=== PATIENT | male | born 1970 | race African-American/Black ===

== ENCOUNTER 2022-06-07 15:51 | Inpatient (IN) ==
--- NOTE | 2022-06-07 16:55 | XRay Report ---
XR chest 1V portable HISTORY: Shortness of breath. COMPARISON: None. FINDINGS: There is a large right pneumothorax with near complete collapse of the right lung. There is mild left mediastinal shift suggesting a tension right pneumothorax. The left lung is clear. No pleu ral effusions. No acute fractures identified. IMPRESSION: Large right pneumothorax with mild left mediastinal shift suggesting a tension pneumothorax. This was discussed with Dr. Cano at 4:50 PM on 06/07/2022. ACT 112: Negative or not required by law. Electronically signed by: Donald Oneill M.D. 06/07/2022 4:53 PM
[2022-06-07] MEDS ORDERED: fentaNYL citrate 100 MCG/2 ML VIAL IV ONE (16:57)
[2022-06-07] MEDS ORDERED: ONDANSETRON INJ 2 MG/ML 2 ML VIAL IV STA (16:57)
[2022-06-07] MEDS ORDERED: SODIUM CHLORIDE 0.9% 1000ML 1,000 ML IV ONE (16:58)
[2022-06-07 17:20] LABS: Basophils # (auto) 0.02 K/uL (0-0.2); Basophils % (auto) 0.2 %; Eosinophils # (auto) 0.22 K/uL (0-0.50); Eosinophils % (auto) 2.4 %; Hematocrit (blood only) 48.6 % (40.1-51.0); Hemoglobin 16.9 g/dl (14.0-18.0); Immature Granulocytes # (auto) 0.02 K/uL (0.00-0.02); Immature Granulocytes % (auto) 0.2 %; Lymphocytes # (auto) 2.68 K/uL (1.2-3.4); Lymphocytes % (auto) 29.4 %; Mean Corpuscular Hemoglobin 31.9 pg (25.0-34.0); Mean Corpuscular Hgb Conc 34.8 g/dL (32.0-36.0); Mean Corpuscular Volume 91.7 fL (80.0-100.0); Mean Platelet Volume 11.1 fL (9.4-12.4); Monocytes # (auto) 0.57 K/uL (0.24-0.82); Monocytes % (auto) 6.3 %; Neutrophils % (auto) 61.5 %; Platelet Count 240 K/uL (130-400); RDW Coefficient of Variation 12.4 % (11.5-14.5); RDW Standard Deviation 41.3 fL (36.4-46.3); White Blood Count 9.11 K/ul (4.8-10.8)
[2022-06-07 17:34] LABS: Partial Thromboplastin Ratio 0.9; Partial Thromboplastin Time 25.1 Seconds (21.0-31.0); Prothrombin Time 10.5 Seconds (9.0-12.0)
[2022-06-07 17:41] LABS: Albumin Globulin Ratio 1.1 (0.9-2); Albumin Level 4.8 gm/dl (3.4-5.0); BUN Creatinine Ratio 11.6 (10-20); Bilirubin,Total 0.4 mg/dl (0.2-1.0); Calcium 10.5 mg/dl (8.5-10.1); Creatinine Clr Calc Pharmacy 90.5 ml/min; Est GFR (African American) 74.4 ml/min; Est GFR (Non-African American) 64.2 ml/min; Globulin 4.3 gm/dl (2.5-4.0); Magnesium 2.1 mg/dl (1.7-2.4); Potassium 4.5 mmol/L (3.5-5.1); Total Protein 9.1 gm/dl (6.0-8.3)
[2022-06-07] MEDS ORDERED: XYLOCAINE 1%/SOD BICARB 20 ML VIAL INFIL ONE (17:45)
[2022-06-07 17:50] LABS: Troponin I High Sensitivity 13.6 pg/ml (0-20)
--- NOTE | 2022-06-07 18:09 | XRay Report ---
XR chest 1V portable HISTORY: Right-sided pneumothorax status post chest tube. COMPARISON: Chest 06/07/2022. FINDINGS: A right-sided chest tube terminates in the right upper lung zone. Significant decrease in s ize in the now small to moderate right pleural effusion. Right medial lung base densities favor atele ctasis of the right lower lobe. The left lung is clear. No significant mediastinal shift. The heart i s normal in size. IMPRESSION: Decrease in size in the now small to moderate right pleural effusion status post right chest tube kristen cement. ACT 112: Negative or not required by law. Electronically signed by: Donald Oneill M.D. 06/07/2022 6:07 PM
[2022-06-07] MEDS ORDERED: fentaNYL citrate 100 MCG/2 ML VIAL IV STA (18:16)
[2022-06-07] MEDS ORDERED: ONDANSETRON INJ 2 MG/ML 2 ML VIAL IV PRN (18:55)
[2022-06-07] MEDS ORDERED: MAGNESIUM HYDROXIDE SUSP 30 ML UDC PO PRN (18:55)
[2022-06-07] MEDS ORDERED: ACETAMINOPHEN 325 MG TAB PO PRN (18:55)
[2022-06-07] MEDS ORDERED: POLYETHYLENE (MIRALAX) 17 GM PACK PO PRN (18:55)
[2022-06-07] MEDS ORDERED: ALUMINUM/MAGNESIUM SUSP 30 ML UDC PO PRN (18:55)
--- NOTE | 2022-06-07 19:02 | History & Physical Report ---
Date of Service June 07, 2022 Assessment & Plan (1) Tension pneumothorax: (2) Shortness of breath: Plan: Patient reports working out at the gym throwing a weighted medicine ball and started to have right-sided chest pain CXR: Large right pneumothorax with mild left mediastinal shift suggesting a tension pneumothorax Right-sided chest tube placed to - 20 cm dry suction Patient reports right sided insertion pain; Toradol 10 mg every 6 scheduled with Percocet every 6 as needed for breakthrough Patient reports being a smoker, but quit 3 years ago. Reportedly vapes at times. Recent cough; will rule out infection as organic cause Troponin 13.6 will trend x1. 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 Additionally, I was able to review the patients past medication reconciliation and history with direct visualization in the patients chart. Included in the time above, a portion of that time was spent assessing the pat ient while discussing and collaborating with specialists, if necessary, and making medical decisions regarding orders to be placed. All of the aforementioned completed while collaborating with Dr. Gonsalez for a full treatment plan. Please see his addendum for further details. History of Present Illness Chief Complaint: shortness of breath Primary Care Provider: SUSANA Day Mr. Guerrero is a 51-year-old incarcerated -[place] male that presented to the [facility] today after experiencing worsening shortness of breath. He reports that he was at the [employer] working out and tos sing a weighted medicine ball when he started to note pain in his right chest wall that occurred yesterday. Patient reports shortness of breath at rest and exertion starting today even when making his bed. Chest x-ray revealed large right pneumothorax with mild left mediastinal shift suggesting a tension pneumothorax. Dry suction -20 cm chest tube was placed in the right chest wall in the ED with relief of his shortness of breath. Additional past medical history includes HIV positive (on Biktarvy) for the last 9 to 10 years, depression and pericardial effusion status post Pericardiocentes is and pericardial drain thereafter. 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 Patient reports being a smoker and quitting 3 years ago; reports vaping occasionally. Upon examination, patient is AAO x4 and able to have full conversation without dyspnea. Patient reports right-sided insertional pain. Patient denies headache, dizziness, visual changes, other chest pain, palpitations, abdominal pain, nausea, vomiting, diarrhea, recent falls or trauma. Patient reportedly denies any trauma or chest blows from other inmates. Initial troponin 13.6 will trend x1 but do not suspect ACS contribution to symptoms. Patient will be admitted for further evaluation, consultation, and management. Please see A/P for further details. Allergies Allergy/AdvReac Type Severity Reaction Status Date / Time sodium chloride AdvReac Unknown CONTRAINDIC Verified 06/07/22 18:29 [From [place] Nasal] ATED Home Medications Medication Instructions Recorded Confirmed Type bictegravir 30 mg-emtricitabine 1 tab PO DAILY 06/07/22 06/07/22 History 120 mg-tenofovir alafenam 15 mg tablet (Biktarvy) doxepin 10 mg capsule 10 mg PO HS 06/07/22 06/07/22 History multivitamin with min 1 tab PO DAILY 06/07/22 06/07/22 History no.36-iron,carbonyl-FA 16 mg iron-0.38 mg tablet (Geritol Complete) Past Med/Surg History Medical History (Updated 06/07/22 @ 20:36 by RUBIN Guzman) Depression HIV (human immunodeficiency virus infection) Pericardial effusion Pericardial effusion Shortness of breath Family History (Updated 06/07/22 @ 20:35 by RUBIN Guzman) Other Depression Dyslipidemia Social History (Updated 06/07/22 @ 20:35 by RUBIN Guzman) Smoking Status: Former smoker Tobacco Type: Cigarettes Hx Substance Use: No Feels Safe at Home: Yes Review of Systems Review of Systems: Neuro: (-) Falls, trauma, slurred speech HEENT: (-) RODRIGUEZ, dizziness, dysphagia, visual or auditory changes CV: (-) CP, palpitations, swelling Resp: (+) SOB, + Right wall chest tube insertion pain GI: (-) appetite changes, N/V/D, bowel changes : (-) urinary changes Skin: (-) rashes Psych: (-) anxiety, depression Physical Exam Physical Exam: Neuro: AAOx4, PERRLA, no aphagia, memory changes, CNII-XII grossly intact HEENT: head normocephalic, moist mucus membranes CV: S1/S2, (-) M/G/R, (-) edema, cap refill < 3 seconds Resp: Lungs CTA in left painting. no air movement on right sideOn 2LNC GI: Abdomen S/NT/ND, Ax4 bowel sounds, (-) CVA tenderness Musculoskeletal: 5/5 B/L UE strength, 5/5 B/L LE strength. No gait disturbance Skin: (-) rashes , (-) erythema. Psych: euthymic mood Results & Data Results & Data ([facility]) Vital Signs (Past 12 Hours) Vital Signs Temp Pulse Pulse Resp BP BP Pulse Ox 06/07/22 18:30 59 L 16 131/82 97 06/07/22 18:01 67 16 151/62 H 97 06/07/22 17:31 93 H 18 148/95 H 94 06/07/22 17:13 76 18 160/66 H 94 06/07/22 18:10 98 06/07/22 15:44 78 20 148/85 H 95 06/07/22 15:44 95 06/07/22 15:44 36.6 C 76 20 145/85 H 95 06/07/22 15:44 O2 Del Method O2 Flow Rate 06/07/22 18:30 Nasal Cannula 2 06/07/22 18:01 Nasal Cannula 4 06/07/22 17:31 Nasal Cannula 4 06/07/22 17:13 Nasal Cannula 4 06/07/22 18:10 Nasal Cannula 4 06/07/22 15:44 Room Air 06/07/22 15:44 Room Air 06/07/22 15:44 Room Air 06/07/22 15:44 Room Air Laboratory Results Short CBC 06/07/22 Range/Units 16:41 WBC 9.11 (4.8-10.8) K/ul Hgb 16.9 (14.0-18.0) g/dl Hct 48.6 (40.1-51.0) % Plt Count 240 (130-400) K/uL BMP 06/07/22 16:41 Sodium 138 Potassium 4.5 Chloride 103 Carbon Dioxide 28 BUN 15 Creatinine 1.29 Glucose 78 Calcium 10.5 H Liver Function 06/07/22 Range/Units 16:41 Total Bilirubin 0.4 (0.2-1.0) mg/dl AST 32 (13-39) U/L ALT 41 (7-52) U/L Alkaline Phosphatase 110 H (34-104) U/L Albumin 4.8 (3.4-5.0) gm/dl Diagnostic Findings Chest X-Ray 06/07/22 16:39 XR chest 1V portable HISTORY: Shortness of breath. COMPARISON: None. FINDINGS: There is a large right pneumothorax with near complete collapse of the right lung. There is mild left mediastinal shift suggesting a tension right pneumothorax. The left lung is clear. No pleural effusions. No acute fractures identified. IMPRESSION: Large right pneumothorax with mild left mediastinal shift suggesting a tension pneumothorax. This was discussed with Dr. Cano at 4:50 PM on 06/07/2022. ACT 112: Negative or not required by law. Electronically signed by: Donald Oneill M.D. 06/07/2022 4:53 PM Chest X-Ray 06/07/22 17:55 XR chest 1V portable HISTORY: Right-sided pneumothorax status post chest tube. COMPARISON: Chest 06/07/2022. FINDINGS: A right-sided chest tube terminates in the right upper lung zone. Significant decrease in size in the now small to moderate right pleural effusion. Right medial lung base densities favor atelectasis of the right lower lobe. The left lung is clear. No significant mediastinal shift. The heart is normal in size. IMPRESSION: Decrease in size in the now small to moderate right pleural effusion status post right chest tube placement. ACT 112: Negative or not required by law. Electronically signed by: Donald Oneill M.D. 06/07/2022 6:07 PM Code Status & VTE Plan Code Status Full code in the event of cardiac or respiratory arrest VTE Prophylaxis Plan VTE Prophylaxis will be ordered: Yes Supervising Physician Co-Signing Physician Notes 51-year-old male with PMH of COPD, tobacco abuse [he smoked for more than 25 years, quit 3 years ago, used to roll his own tobacco], current use of vaping, quit alcohol, uses weed, HIV on Biktarvy presented to the ED 06/07 with right- sided chest pain and shortness of breath. Per patient, he was working out/doing pushup, towards the end of the workout he started feeling some right-sided chest pain associated with some difficulty catching breath which progressively worsened through the day and was found to have right pneumothorax upon presentation in the ED. Patient declines headache or dizziness or fever, reports having dry cough last few days, denies belly pain or acute changes in his bowel or bladder habit. Medications reviewed with the patient Full code Plan of care discussed with the patient Upon examination: GENERAL: Alert and oriented x3. NAD, on 2 L nasal cannula HEENT: No pallor, no icterus. Pupils equal, round and reactive to light. Oral mucosa moist. NECK: No JVD, no neck masses. HEART: S1 and S2 heard. Regular rate and rhythm. No murmur, no gallop. RESPIRATORY SYSTEM: Normal AP diameter. No accessory muscle use. Right chest with chest tube and decreased breath sound, left chest with clear to auscultation. ABDOMEN: Soft, bowel sounds present, nontender, no distention. CENTRAL NERVOUS SYSTEM: No facial droop. Speech is clear. Obeys simple commands. Moves extremities. EXTREMITIES: No edema, no erythema seen. Assessment and plan: Tension pneumothorax x right Patient presented with right-sided chest pain associated with difficulty catching breath Patient found to have right large pneumothorax, status post chest tube insertion 06/07 in the ED Admitting troponin WNL. Pulmonology consult. Patient appears not in distress, pain management. Get full viral panel. HIV AIDS: On Biktarvy as outpatient, will continue. DVT prophylaxis: SCDs only for now Full code
[2022-06-07] MEDS ORDERED: KETOROLAC TROMETHAMINE 15 MG/ML VIAL IV STA (20:51)
--- NOTE | 2022-06-08 00:32 | Emergency Department Note ---
Impression & Plan Tension pneumothorax ED Provider Note NAME: SUSANNE [id number] CHELO AGE: 51 SEX: M ARRIVES VIA: Ambulance INFORMANT: Patient ED PROVIDER(S): Lolis Cano MD CHIEF COMPLAINT: SOB PLAN: Disposition: Admit Condition: Fair MEDICAL DECISION MAKING: This pt was evaluated and appeared to be in no distress. IV access was obtained and lab work was drawn. CXR was performed prior to my evaluation and I was notified by radiology, Dr. Oneill, that the pt had a RIGHT pneumothorax with slight mediastinal shift. Pt was informed of the findings and I did reverify no trauma was involved. Pt was informed of the process with chest tube and due to the size of the pneumothorax, it was felt to be necessary. Pt tolerated the procedure well after 100 mcg IV fentanyl was administered x 2. He did receive IV NSS bolus for hydration. CXR was performed to confirm placement and the lung was noted to be expanding. Case was d/w the hospitalist service for further management. Pt was made aware of the plan and agreed. Triage Nursing notes reviewed Additional history obtained from halfway guards External medical records reviewed Vital Signs: reviewed and remarkable for no significant abnormalities Differential diagnosis: Reactive airway disease, pneumonia, pneumothorax, COPD, CHF, infections, cardiac ischemia, pulmonary embolism, musculoskeletal, gastrointestinal, as well as other pathologies. ER treatment provided: IV access, IVF, pain control, CXR, chest tube Diagnostics interpreted by me: ECG: to my interpretation reveals a sinus rhythm with sinus arrhythmia at 68 with previous anterior infarct. QTc 406, no PVC, no PAC. Cardiac Monitoring: to my interpretation reveals a NSR at 78 bpm Imaging studies: CXR to my interpretation reveals a large R pneumothorax w minimal mediastinal shift. Consultation(s): [facility] hospitalist HPI: 51/M arrives for evaluation of increasing SOB today. Pt states he noticed a bit of a URI/cough in the last 2 days. Today the pt was working out and noticed worsening SOB, but no CP. He did then start coughing. When he coughs or deep breaths he does notice some discomfort. Pt was seen by the infirmary at the halfway and given tylenol without relief. He was then transferred here for further management. He denies trauma, no h/o chest surgery. Pt denies fevers, vomiting, diarrhea. ROS: See above HPI for pertinent positives & negatives. A total of 10 systems reviewed and were otherwise negative. PAST MEDICAL HISTORY:HIV PAST SURGICAL HISTORY:Unknown, pt believes previous surgery on R side ?lung vs cardiac fluid SOCIAL HISTORY:[facility] HOME MEDICATIONS:Biktarvy, doxypin, MVI ALLERGIES:NKDA VITALS:AVSS PHYSICAL EXAMINATION: Vital signs reviewed. General: Well-appearing 51 yo male, in no significant distress. HEENT: No scleral icterus, PERRLA, neck supple. MMM Cardiovascular: Regular rate and rhythm, no extra sounds. Pulmonary: diminished R BS, clear L. shallow respirations on RA. Abdomen: Soft, nontender, nondistended, positive bowel sounds. Musculoskeletal: Atraumatic, no peripheral edema. Neurologic: Patient awake alert and oriented x 3 Skin: Warm, dry, no rash ED COURSE: This patient was evaluated and appeared to be in no significant distress. External medical records from the halfway were reviewed. Patient's chest x-ray was evaluated and a right pneumothorax with slight mediastinal shift was appreciated. Patient was not unstable therefore chest tube set up was performed after the patient was informed of the pending procedure. He was consented. He was given IV fentanyl and Zofran. The patient was hydrated with normal saline solution. Please see my procedure note below. He did tolerate the procedure well and there were no complications. A small chest tube was placed due to the spontaneous nature of the pneumothorax. Due to the size of the pneumothorax however I did not feel that a pigtail catheter was appropriate. Case was discussed with the hospitalist service will evaluate the patient for admission and further management Procedures: Tube Thoracostomy Indication: R Pneumothorax Written consent was obtained after the risks and benefits were explained, including but not limited to cardiac/liver/lung injury, bleeding, scarring, infection, pain, and bone/joint/nerve damage. At this time, the risks of the procedure are less than the risks of NOT performing the procedure. A time out was taken and the correct patient and site identified. The patient was prepped and draped in the standard surgical fashion. 1% lidocaine without epinephrine was infused over the R fifth intercostal space into the subcutaneous tissue. A 2 cm incision was made transversely in the mid axillary line over the fifth intercostal rib. Blunt dissection was done with a Erin clamp to the area of the intercostal muscles; 1% lidocaine again was used for anesthesia in intercostal muscle and subpleural space. Blunt dissection was then done with the Erin clamps into the pleural cavity over the rib. Air was noted upon entering the pleural cavity. The pleural cavity was digitally inspected to confirm that the pleural cavity had been entered. A 20 Lao thoracostomy tube was inserted in the superior/posterior portion of the pleural space. 1-0 silk suture was used to approximate the skin above the thoracostomy tube and then used to secure the thoracostomy tube. An occlusive dressing was then placed and the thoracostomy tube was hooked to the Pleur-evac suction. The patient tolerated the procedure well without complications. A postoperative x-ray was then performed which showed the thoracostomy tube in the correct position. Lolis Cano MD I have personally spent 30 minutes of critical care time in the direct management of this patient. This was a life/limb threatening event. This 30 minutes is in excess of all separately billable procedures. 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 Required: No Beliefs That Will Affect Care: None Current Living Situation: Other Current Living Situation Comment: halfway Other Information That Helps Us Care for You: No Feels Safe at Home: Yes Assistive Devices: None Allergies Allergies Allergy/AdvReac Type Severity Reaction Status Date / Time No Known Drug Allergies Allergy Verified 06/10/22 10:17 Home Meds Home Medications Medication Instructions Recorded Confirmed bictegravir 30 mg-emtricitabine 1 tab PO DAILY 06/07/22 06/07/22 120 mg-tenofovir alafenam 15 mg tablet (Biktarvy) doxepin 10 mg capsule 10 mg PO HS 06/07/22 06/07/22 multivitamin with min 1 tab PO DAILY 06/07/22 06/07/22 no.36-iron,carbonyl-FA 16 mg iron-0.38 mg tablet (Geritol Complete) Results & Data (ED) Vital Signs Vital Signs - 24 hr 06/07/22 15:44 06/07/22 15:44 06/07/22 15:44 Temperature 36.6 C Temperature Source Oral Pulse Rate 76 Pulse Rate [Apical] Pulse Rhythm Regular Pulse Rhythm [Apical] Pulse Strength Normal Pulse Strength [Apical] Respiratory Rate 20 Respiratory Effort / Characteristics Non-Labored Non-Labored Respiratory Depth Normal Normal Respiratory Pattern Regular Regular Blood Pressure 145/85 H Blood Pressure [Right Arm] Blood Pressure Mean 105 Blood Pressure Mean [Right Arm] Blood Pressure Position Lying Pulse Oximetry 95 95 Oxygen Delivery Method Room Air Room Air Room Air Oxygen Flow Rate Sepsis Recent Fever Within 48 Hours No Sepsis New/Unexplained Change in Mental Status N/A Sepsis Action Taken by Nursing No Action Required Oxygen Flow Rate - Titration Pulse Oximetry Post Tiitration 06/07/22 15:44 06/07/22 18:10 06/07/22 17:13 Temperature Temperature Source Pulse Rate 76 Pulse Rate [Apical] 78 Pulse Rhythm Pulse Rhythm [Apical] Regular Pulse Strength Pulse Strength [Apical] Normal Respiratory Rate 20 18 Respiratory Effort / Characteristics Non-Labored Respiratory Depth Normal Respiratory Pattern Regular Blood Pressure 160/66 H Blood Pressure [Right Arm] 148/85 H Blood Pressure Mean 97 Blood Pressure Mean [Right Arm] 106 Blood Pressure Position Pulse Oximetry 95 98 94 Oxygen Delivery Method Room Air Nasal Cannula Nasal Cannula Oxygen Flow Rate 4 4 Sepsis Recent Fever Within 48 Hours Sepsis New/Unexplained Change in Mental Status Sepsis Action Taken by Nursing Oxygen Flow Rate - Titration 2 Pulse Oximetry Post Tiitration 97 06/07/22 17:31 06/07/22 18:01 06/07/22 18:30 Temperature Temperature Source Pulse Rate 93 H 67 59 L Pulse Rate [Apical] Pulse Rhythm Pulse Rhythm [Apical] Pulse Strength Pulse Strength [Apical] Respiratory Rate 18 16 16 Respiratory Effort / Characteristics Respiratory Depth Respiratory Pattern Blood Pressure 148/95 H 151/62 H 131/82 Blood Pressure [Right Arm] Blood Pressure Mean 112 91 98 Blood Pressure Mean [Right Arm] Blood Pressure Position Pulse Oximetry 94 97 97 Oxygen Delivery Method Nasal Cannula Nasal Cannula Nasal Cannula Oxygen Flow Rate 4 4 2 Sepsis Recent Fever Within 48 Hours Sepsis New/Unexplained Change in Mental Status Sepsis Action Taken by Nursing Oxygen Flow Rate - Titration Pulse Oximetry Post Tiitration Home Medications Current Medication List: was personally reviewed by me Laboratory Data Attestation: I reviewed the patient's lab results. 06/07/22 16:41 06/07/22 16:41 Lab Results 06/07/22 06/07/22 06/07/22 Range/Units 16:41 16:41 16:41 WBC 9.11 (4.8-10.8) K/ul RBC 5.30 (4.63-6.08) M/uL Hgb 16.9 (14.0-18.0) g/dl Hct 48.6 (40.1-51.0) % MCV 91.7 (80.0-100.0) fL MCH 31.9 (25.0-34.0) pg MCHC 34.8 (32.0-36.0) g/dL RDW Std Deviation 41.3 (36.4-46.3) fL RDW Coeff of Lindsey 12.4 (11.5-14.5) % Plt Count 240 (130-400) K/uL MPV 11.1 (9.4-12.4) fL Immature Gran % (Auto) 0.2 % Neut % (Auto) 61.5 % Lymph % (Auto) 29.4 % Door % (Auto) 6.3 % Eos % (Auto) 2.4 % Baso % (Auto) 0.2 % Neut # (Auto) 5.60 (1.4-6.5) K/uL Lymph # (Auto) 2.68 (1.2-3.4) K/uL Door # (Auto) 0.57 (0.24-0.82) K/uL Eos # (Auto) 0.22 (0-0.50) K/uL Baso # (Auto) 0.02 (0-0.2) K/uL Immature Gran # (Auto) 0.02 (0.00-0.02) K/uL PT 10.5 (9.0-12.0) Seconds INR 1.0 (0.9-1.1) APTT 25.1 (21.0-31.0) Seconds PTT Ratio 0.9 Sodium 138 (136-145) mmol/L Potassium 4.5 (3.5-5.1) mmol/L Chloride 103 (98-107) mmol/L Carbon Dioxide 28 (21-32) mmol/L Anion Gap 7 (3-11) BUN 15 (6-23) mg/dl Creatinine 1.29 (0.6-1.4) mg/dl Est Cr Clr Drug Dosing 90.5 ml/min Est GFR ( Amer) 74.4 ml/min Est GFR (Non-Af Amer) 64.2 ml/min BUN/Creatinine Ratio 11.6 (10-20) Glucose 78 (70-99(Fasting)) mg/dl Calcium 10.5 H (8.5-10.1) mg/dl Magnesium 2.1 (1.7-2.4) mg/dl Total Bilirubin 0.4 (0.2-1.0) mg/dl AST 32 (13-39) U/L ALT 41 (7-52) U/L Alkaline Phosphatase 110 H (34-104) U/L Troponin I High Sens 13.6 (0-20) pg/ml Total Protein 9.1 H (6.0-8.3) gm/dl Albumin 4.8 (3.4-5.0) gm/dl Globulin 4.3 H (2.5-4.0) gm/dl Albumin/Globulin Ratio 1.1 (0.9-2) SARS-CoV-2, RNA, NAAT (NEGATIVE) 06/07/22 Range/Units 18:30 WBC (4.8-10.8) K/ul RBC (4.63-6.08) M/uL Hgb (14.0-18.0) g/dl Hct (40.1-51.0) % MCV (80.0-100.0) fL MCH (25.0-34.0) pg MCHC (32.0-36.0) g/dL RDW Std Deviation (36.4-46.3) fL RDW Coeff of Lindsey (11.5-14.5) % Plt Count (130-400) K/uL MPV (9.4-12.4) fL Immature Gran % (Auto) % Neut % (Auto) % Lymph % (Auto) % Door % (Auto) % Eos % (Auto) % Baso % (Auto) % Neut # (Auto) (1.4-6.5) K/uL Lymph # (Auto) (1.2-3.4) K/uL Door # (Auto) (0.24-0.82) K/uL Eos # (Auto) (0-0.50) K/uL Baso # (Auto) (0-0.2) K/uL Immature Gran # (Auto) (0.00-0.02) K/uL PT (9.0-12.0) Seconds INR (0.9-1.1) APTT (21.0-31.0) Seconds PTT Ratio Sodium (136-145) mmol/L Potassium (3.5-5.1) mmol/L Chloride (98-107) mmol/L Carbon Dioxide (21-32) mmol/L Anion Gap (3-11) BUN (6-23) mg/dl Creatinine (0.6-1.4) mg/dl Est Cr Clr Drug Dosing ml/min Est GFR ( Amer) ml/min Est GFR (Non-Af Amer) ml/min BUN/Creatinine Ratio (10-20) Glucose (70-99(Fasting)) mg/dl Calcium (8.5-10.1) mg/dl Magnesium (1.7-2.4) mg/dl Total Bilirubin (0.2-1.0) mg/dl AST (13-39) U/L ALT (7-52) U/L Alkaline Phosphatase (34-104) U/L Troponin I High Sens (0-20) pg/ml Total Protein (6.0-8.3) gm/dl Albumin (3.4-5.0) gm/dl Globulin (2.5-4.0) gm/dl Albumin/Globulin Ratio (0.9-2) SARS-CoV-2, RNA, NAAT NEGATIVE (NEGATIVE) Administered Medications Acetaminophen (Acetaminophen 325 Mg Tab) 650 mg PO Q4H PRN PRN Reason: Pain or Fever Stop: 07/07/22 18:54 Last Admin: 06/10/22 09:14 Dose: 650 mg Documented By: KGTaran Hydromorphone HCl (Hydromorphone Inj 1 Mg/Ml Syringe) 1 mg IV Q6H PRN PRN Reason: Severe Pain Stop: 06/24/22 16:33 Last Admin: 06/12/22 08:19 Dose: 1 mg Documented By: Admin: 06/12/22 01:03 Dose: 1 mg Documented By: Admin: 06/11/22 15:43 Dose: 1 mg Documented By: Admin: 06/11/22 07:45 Dose: 1 mg Documented By: Admin: 06/10/22 20:23 Dose: 1 mg Documented By: ARNULFO Oxycodone/Acetaminophen (Oxycodone/Acetaminophen 5mg/325mg Tab) 1 tab PO Q6H PRN PRN Reason: Pain Stop: 06/21/22 20:26 Last Admin: 06/12/22 05:36 Dose: 1 tab Documented By: Admin: 06/11/22 20:55 Dose: 1 tab Documented By: Admin: 06/11/22 11:45 Dose: 1 tab Documented By: Admin: 06/10/22 06:06 Dose: 1 tab Documented By: Admin: 06/09/22 13:01 Dose: 1 tab Documented By: Admin: 06/08/22 02:17 Dose: 1 tab Documented By: JEFF Sodium Chloride (Sodium Chloride 0.65% Na Soln 45 Ml ([place])) 2 sprays NA Q4H PRN PRN Reason: Nasal Congestion Stop: 07/10/22 10:13 Last Admin: 06/10/22 10:33 Dose: 2 sprays Documented By: DARION Discontinued Medications Fentanyl Citrate (Fentanyl Citrate 100 Mcg/2 Ml Vial) 100 mcg IV NOW ONE Stop: 06/07/22 16:58 Last Admin: 06/07/22 17:42 Dose: 100 mcg Documented By: ANU Fentanyl Citrate (Fentanyl Citrate 100 Mcg/2 Ml Vial) 100 mcg IV NOW STA Stop: 06/07/22 18:17 Last Admin: 06/07/22 17:50 Dose: 100 mcg Documented By: ANU Hydromorphone HCl (Hydromorphone Inj 1 Mg/Ml Syringe) 1 mg IV NOW STA Stop: 06/10/22 15:48 Last Admin: 06/10/22 15:51 Dose: 1 mg Documented By: PO Hydromorphone HCl (Hydromorphone Inj 1 Mg/Ml Syringe) Confirm Administered Dose 1 mg .ROUTE .STK-MED ONE Stop: 06/10/22 15:49 Last Admin: 06/10/22 16:14 Dose: Not Given Documented By: PO Hydromorphone HCl (Hydromorphone Inj 1 Mg/Ml Syringe) 1 mg IV NOW STA Stop: 06/10/22 16:20 Last Admin: 06/10/22 16:25 Dose: 1 mg Documented By: PO Sodium Chloride (Nss 1000ml) 1,000 mls @ 999 mls/hr IV .Q1H1M ONE Stop: 06/07/22 17:58 Last Infusion: 06/07/22 18:29 Dose: 0 mls/hr Documented By: Admin: 06/07/22 17:26 Dose: 999 mls/hr Documented By: ANU Vancomycin HCl 2,250 mg/ (Sodium Chloride) 545 mls @ 200 mls/hr IV NOW ONE Stop: 06/10/22 19:28 Last Admin: 06/10/22 17:05 Dose: 200 mls/hr Documented By: KGTaran Piperacillin Sod/Tazobactam (Sod 3.375 gm/ Dextrose) 115 mls @ 28.75 mls/hr IV Q8H VEENA; Protocol Stop: 06/17/22 21:59 Last Infusion: 06/12/22 09:27 Dose: 0 mls/hr Documented By: Admin: 06/12/22 05:31 Dose: 28.8 mls/hr Documented By: Infusion: 06/12/22 01:08 Dose: 0 mls/hr Documented By: Admin: 06/11/22 20:56 Dose: 28.8 mls/hr Documented By: Infusion: 06/11/22 18:45 Dose: 28.8 mls/hr Documented By: Admin: 06/11/22 14:45 Dose: 28.8 mls/hr Documented By: Infusion: 06/11/22 11:45 Dose: 0 mls/hr Documented By: Admin: 06/11/22 07:44 Dose: 28.8 mls/hr Documented By: Infusion: 06/11/22 01:52 Dose: 0 mls/hr Documented By: Admin: 06/10/22 21:49 Dose: 28.8 mls/hr Documented By: ARNULFO Piperacillin Sod/Tazobactam (Sod 4.5 gm/ Dextrose) 120 mls @ 200 mls/hr IV NOW ONE; Protocol Stop: 06/10/22 17:20 Last Infusion: 06/10/22 17:46 Dose: 0 mls/hr Documented By: Admin: 06/10/22 17:05 Dose: 200 mls/hr Documented By: KGTaran Vancomycin HCl 1,000 mg/ (Sodium Chloride) 270 mls @ 200 mls/hr IV Q12H VEENA; Protocol Stop: 06/18/22 00:00 Last Infusion: 06/12/22 02:33 Dose: 0 mls/hr Documented By: Admin: 06/12/22 01:03 Dose: 200 mls/hr Documented By: Infusion: 06/11/22 13:36 Dose: 0 mls/hr Documented By: Admin: 06/11/22 11:46 Dose: 200 mls/hr Documented By: Infusion: 06/11/22 04:12 Dose: 0 mls/hr Documented By: Admin: 06/11/22 00:31 Dose: 200 mls/hr Documented By: ARNULFO Sodium Chloride (Nss 1000ml) 1,000 mls @ 60 mls/hr IV .[id number] ONE Stop: 06/11/22 13:23 Last Infusion: 06/11/22 13:44 Dose: 0 mls/hr Documented By: Admin: 06/10/22 21:40 Dose: 60 mls/hr Documented By: ARNULFO Influenza Virus Vaccine Quadrival (Flu Vaccine (Fluarix) 0.5ml Syr (Standard Dose)) 0.5 ml IM .ONCE ONE Stop: 06/08/22 09:01 Last Admin: 06/08/22 19:33 Dose: Not Given Documented By: ARNULFO Ioversol (Optiray 320 500ml) 125 ml IV ONCE ONE Stop: 06/11/22 02:55 Last Admin: 06/11/22 02:54 Dose: 108 ml Documented By: AMMON Ketorolac Tromethamine (Ketorolac Tromethamine 15 Mg/Ml Vial) 10 mg IV Q6H VEENA Stop: 06/13/22 05:59 Last Admin: 06/08/22 12:24 Dose: 10 mg Documented By: Admin: 06/08/22 06:10 Dose: 10 mg Documented By: JEFF Ketorolac Tromethamine (Ketorolac Tromethamine 15 Mg/Ml Vial) 10 mg IV ONE STA Stop: 06/07/22 20:52 Last Admin: 06/07/22 21:44 Dose: 10 mg Documented By: JEFF Ketorolac Tromethamine (Ketorolac Tromethamine 15 Mg/Ml Vial) 10 mg IV Q8H PRN PRN Reason: mild pain Stop: 06/13/22 05:59 Last Admin: 06/10/22 16:14 Dose: 10 mg Documented By: PO Admin: 06/10/22 08:09 Dose: 10 mg Documented By: Admin: 06/09/22 22:29 Dose: 10 mg Documented By: Admin: 06/09/22 16:13 Dose: 10 mg Documented By: Admin: 06/09/22 08:27 Dose: 10 mg Documented By: Admin: 06/08/22 23:28 Dose: 10 mg Documented By: ARNULFO Lidocaine HCl (Xylocaine 1%/Sod Bicarb 20 Ml Vial) Confirm Administered Dose 1 ml INFIL .STK-MED ONE Stop: 06/07/22 17:46 Last Admin: 06/07/22 18:20 Dose: 1 ml Documented By: STEPHEN Lidocaine HCl (Lidocaine 2% Local 50 Ml Vial) Confirm Administered Dose 50 ml .ROUTE .STK-MED ONE Stop: 06/10/22 15:48 Last Admin: 06/10/22 16:13 Dose: 50 ml Documented By: PO Ondansetron HCl (Ondansetron Inj 2 Mg/Ml 2 Ml Vial) 4 mg IV NOW STA Stop: 06/07/22 16:58 Last Admin: 06/07/22 17:42 Dose: 4 mg Documented By: ANU Imaging Data Radiologist's Impression: Chest X-Ray 06/07/22 16:39 XR chest 1V portable HISTORY: Shortness of breath. COMPARISON: None. FINDINGS: There is a large right pneumothorax with near complete collapse of the right lung. There is mild left mediastinal shift suggesting a tension right pneumothorax. The left lung is clear. No pleural effusions. No acute fractures identified. IMPRESSION: Large right pneumothorax with mild left mediastinal shift suggesting a tension pneumothorax. This was discussed with Dr. Cano at 4:50 PM on 06/07/2022. ACT 112: Negative or not required by law. Electronically signed by: Donald Oneill M.D. 06/07/2022 4:53 PM Chest X-Ray 06/07/22 17:55 XR chest 1V portable HISTORY: Right-sided pneumothorax status post chest tube. COMPARISON: Chest 06/07/2022. FINDINGS: A right-sided chest tube terminates in the right upper lung zone. Significant decrease in size in the now small to moderate right pleural effusion. Right medial lung base densities favor atelectasis of the right lower lobe. The left lung is clear. No significant mediastinal shift. The heart is normal in size. IMPRESSION: Decrease in size in the now small to moderate right pleural effusion status post right chest tube placement. ACT 112: Negative or not required by law. Electronically signed by: Donald Oneill M.D. 06/07/2022 6:07 PM ADDENDUM There is a dictation error in both the body and impression of the report. There is no pleural effusion. There has been decrease in size in the now small to moderate right pneumothorax. Electronically signed by: Donald Oneill M.D. 06/07/2022 6:13 PM Blood Pressure Blood Pressure Findings: Elevated blood pressure Blood Pressure Disposition: did not require urgent referral Discharge Plan Visit Data Chief Complaint: Shortness of Breath/Dyspnea ED Provider: Lolis Cano Discharge Problem: Tension pneumothorax Patient Disposition: Admitted As Inpatient Discharge Instructions Interventions: ED Discharge Assessment Last Done: 06/07/22 20:53
[2022-06-08] MEDS: oxyCODONE/ACETAMINOPHEN 5mg/325mg TAB PO PRN (02:17)
[2022-06-08] MEDS: KETOROLAC TROMETHAMINE 15 MG/ML VIAL IV SCH ×2 (06:10→12:24)
[2022-06-08 06:29] LABS: Hematocrit (blood only) 44.8 % (40.1-51.0); Hemoglobin 15.6 g/dl (14.0-18.0); Mean Corpuscular Hemoglobin 31.9 pg (25.0-34.0); Mean Corpuscular Hgb Conc 34.8 g/dL (32.0-36.0); Mean Corpuscular Volume 91.6 fL (80.0-100.0); Mean Platelet Volume 10.3 fL (9.4-12.4); Platelet Count 215 K/uL (130-400); RDW Coefficient of Variation 12.4 % (11.5-14.5); RDW Standard Deviation 41.7 fL (36.4-46.3); Red Blood Count 4.89 M/uL (4.63-6.08); White Blood Count 10.06 K/ul (4.8-10.8)
[2022-06-08 06:58] LABS: Creatinine Clr Calc Pharmacy 81.3 ml/min; Est GFR (African American) 68.6 ml/min; Est GFR (Non-African American) 59.2 ml/min; Phosphorus 4.2 mg/dl (2.5-4.9); Potassium 4.2 mmol/L (3.5-5.1)
[2022-06-08 07:17] LABS: Appearance Urine Clear (Clear); Bilirubin Urine Negative (Negative); Blood Urine Negative (Negative); Color Urine Yellow; Glucose Urine UA Negative (Negative); Ketones Urine Trace (Negative); Leukocyte Esterase Urine Negative (Negative); Nitrite Urine Negative (Negative); Protein Urine Negative (Negative); Specific Gravity Urine 1.025 (1.000-1.030); Urobilinogen Urine Negative (Negative); pH Urine 6.5 (4.5-7.5)
[2022-06-08] MEDS ORDERED: Flu Vaccine (Fluarix) 0.5mL SYR (Standard Dose) IM ONE (09:00)
--- NOTE | 2022-06-08 09:04 | Electrocardiogram Report ---
Test Reason : Blood Pressure : / mmHG Vent. Rate : 068 BPM Atrial Rate : 068 BPM P-R Int : 148 ms QRS Dur : 090 ms QT Int : 382 ms P-R-T Axes : 089 079 063 degrees QTc Int : 406 ms Sinus rhythm with marked sinus arrhythmia Normal ECG No previous ECGs available Confirmed by Ruiz Cha ([id number]) on 06/08/2022 9:04:29 AM Referred By: [facility] Confirmed By:Ruiz Cha
--- NOTE | 2022-06-08 11:35 | XRay Report ---
XR chest 1V portable CLINICAL HISTORY: pneumothorax TECHNIQUE: Single frontal radiograph of the chest was obtained. Comparison: Comparison is made to chest radiograph 06/07/2022 FINDINGS: A right chest tube is seen with the side-port and tip in the thoracic cavity. The cardiomediastinal s ilhouette is normal. Emphysematous changes are seen. Previously noted right pneumothorax is further d ecreased in size. Subcutaneous emphysema is noted. IMPRESSION: The right pneumothorax is further decreased in size status post chest tube placement. ACT 112: Negative or not required by law. Electronically signed by: Luke Lloyd M.D. 06/08/2022 11:34 AM
--- NOTE | 2022-06-08 11:49 | Pulmonary Consultation ---
Date of Consultation June 08, 2022 Assessment & Plan (1) Tension pneumothorax: 51-year-old male presenting with spontaneous pneumothorax who is status post RIGHT-sided chest tube placement. Consulted for continued management of chest tube. * Likely represents ruptured bleb as patient with significant emphysematous changes throughout the lung apices RIGHT greater than left. * CT shows improvement of pneumothorax. * Keep chest tube to -20 cmH2O. * Continues to have a leak of 1-2. * Repeat AM CXR * Continue with pain management as you are. * Hopeful for resolve without the need for advanced intervention (i.e. pleurodesis). Thank you for allowing us to participate in the care of this patient. (2) Shortness of breath: Supervising Physician Co-Signing Physician Notes Patient seen and examined. EMR reviewed. Discussed with SHERIDAN and agree with assessment plan as noted. On my assessment, the patient's tube has been returned to suction. There is no significant air leak. CT was reviewed. Significant bolus paraseptal emphysematous changes. Hopefully we can avoid needing surgery or pleurodesis at this point time. Continue suction of chest tube overnight and will repeat chest x-ray in morning. If the lung remains up, we will clamp the tube and in 4 hours repeat chest x-ray. If the lung remains up, the tube can be discontinued and the patient can be discharged from the hospital. He was counseled regarding the importance of remaining free of all tobacco products including vaping. If the pneumothorax should recur, the patient would likely require potential bullectomy and pleurodesis which would require transfer to a tertiary care facility. History of Present Illness Reason for Consultation: Tension Pneumothorax Requesting Physician: RUBIN Conley Attending Physician: Chai Luz MD History of Present Illness Patient is a 51-year-old incarcerated male with a significant past medical history of depression and HIV who presented to the emergency department with abrupt onset of shortness of breath. The patient reports that while working out at the gym, he noticed a sharp pain to the RIGHT-sided chest. He developed progressively worsening shortness of breath which was to the point that he was unable to make his own bed without losing his breath. Upon evaluation in the emergency department, the patient was noted to have a large pneumothorax with tension component. Chest tube was placed in the emergency department. Pulmonary medicine consulted for evaluation and management of ongoing chest tube. Upon evaluation in room 215, the patient is awake, alert, and oriented. He complains of pain at the site of chest tube placement. He reports that the pain medication has been helping. Patient reports a several year history of smoking. He reports smoking approximately a pack a day for approximately 30 years. He has been incarcerated for the last 7 years and reports that he occasionally vapes. He has not experienced shortness of breath recently and actually is pretty active working out 3-4 times a week without any significant shortness of breath or restrictions otherwise. No prior history of pneumothorax, but patient does report a remote history of pericardial effusion which was thought to be spontaneous and resolved after draining. Allergies Allergy/AdvReac Type Severity Reaction Status Date / Time sodium chloride AdvReac Unknown CONTRAINDIC Verified 06/07/22 18:29 [From [place] Nasal] ATED Home Medications Medication Instructions Recorded Confirmed Type bictegravir 30 mg-emtricitabine 1 tab PO DAILY 06/07/22 06/07/22 History 120 mg-tenofovir alafenam 15 mg tablet (Biktarvy) doxepin 10 mg capsule 10 mg PO HS 06/07/22 06/07/22 History multivitamin with min 1 tab PO DAILY 06/07/22 06/07/22 History no.36-iron,carbonyl-FA 16 mg iron-0.38 mg tablet (Geritol Complete) Patient History Medical History Depression HIV (human immunodeficiency virus infection) Pericardial effusion Pericardial effusion Shortness of breath Family History Other Depression Dyslipidemia Social History Smoking Status: Former smoker Tobacco Type: Cigarettes Hx Alcohol Use: No Hx Substance Use: No Preferred Language: Belarusian Stator Plate [employer]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 All else were negative. Physical Exam Physical Exam: VITAL SIGNS - Vital signs and nursing notes were reviewed. GENERAL - 51-year-old male appearing his stated age who is in no acute distress. Communicates well with provider and answers questions appropriately. NECK - Neck with FROM. Supple to palpation. LUNGS - Chest tube in place to the RIGHT sided chest wall. Chest tube with a leak of 1-2. Distant breath sounds on the RIGHT sided lung painting. CARDIAC - RRR with S1/S2. No murmur, rubs, or gallops appreciated. No reproducible tenderness to palpation appreciated over the anterior chest wall. ABDOMEN - Abdominal contour flat without pulsations or visible masses. BS normoactive all four quadrants. No tenderness, palpable masses, hepato splenomegaly, or ascites noted. EXTREMITIES - No clubbing or peripheral cyanosis. No pretibial edema present. +3/5 radial and dorsalis pedis pulses palpated throughout. +5/5 strength noted in UE/LE bilaterally. NEUROLOGIC - Cranial nerves II through XII grossly intact. Sensory intact to light touch throughout. PSYCH - A&Ox3 and cooperates fully with examiner. Pt is very pleasant and interacts well with examiner. Results & Data Results & Data ([facility]) Vital Signs (Past 12 Hours) Vital Signs Temp Pulse Pulse Resp BP Pulse Ox O2 Del Method 06/08/22 08:43 50 L 06/08/22 08:43 Room Air 06/08/22 06:57 36.4 C L 46 L 16 134/76 96 Room Air 06/08/22 02:18 36.7 C 55 L 19 127/65 94 Room Air PG Care Time/CCT Total # of Minutes Spent Total Time Spent with Patient: Total time spent is greater than 50% in coordination of care (as documented) at patient's floor/unit and/or counseling patient: Coding Level of Care Code INP/OBS CONSULT LVL 4, 60 MIN Diagnoses Tension pneumothorax J93.0 Shortness of breath R06.02 Time Spent (min) 45
--- NOTE | 2022-06-08 14:02 | Hospitalist Progress Note ---
Date of Service June 08, 2022 Assessment & Plan (1) Tension pneumothorax: (2) Shortness of breath: Plan: Patient reports working out at the gym throwing a weighted medicine ball and started to have right-sided chest pain CXR: Large right pneumothorax with mild left mediastinal shift suggesting a tension pneumothorax Right-sided chest tube placed to - 20 cm dry suction Pulmonology consulted; CT chest obtained. We will follow-up on recommendation. 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 He is comfortably lying in the bed; reports pain at the chest tube site. Review of Systems Review of Systems: All systems reviewed & are unremarkable except as noted in Subjective Physical Exam Physical Exam: GENERAL: Alert and oriented x3. NAD, on 2 L nasal cannula HEENT: No pallor, no icterus. Pupils equal, round and reactive to light. Oral mucosa moist. NECK: No JVD, no neck masses. HEART: S1 and S2 heard. Regular rate and rhythm. No murmur, no gallop. RESPIRATORY SYSTEM: Normal AP diameter. No accessory muscle use. Right chest with chest tube, left chest with clear to auscultation. ABDOMEN: Soft, bowel sounds present, nontender, no distention. CENTRAL NERVOUS SYSTEM: No facial droop. Speech is clear. Obeys simple commands. Moves extremities. EXTREMITIES: No edema, no erythema seen. Results & Data Results & Data ([facility]) Vital Signs (Past 12 Hours) Vital Signs Temp Pulse Pulse Resp BP Pulse Ox O2 Del Method 06/08/22 12:04 36.4 C L 47 L 14 136/81 96 Room Air 06/08/22 08:43 50 L 06/08/22 08:43 Room Air 06/08/22 06:57 36.4 C L 46 L 16 134/76 96 Room Air 06/08/22 02:18 36.7 C 55 L 19 127/65 94 Room Air Laboratory Results Laboratory Results WBC 10.06 K/ul (4.8-10.8) 06/08/22 06:09 RBC 4.89 M/uL (4.63-6.08) 06/08/22 06:09 Hgb 15.6 g/dl (14.0-18.0) 06/08/22 06:09 Hct 44.8 % (40.1-51.0) 06/08/22 06:09 MCV 91.6 fL (80.0-100.0) 06/08/22 06:09 MCH 31.9 pg (25.0-34.0) 06/08/22 06:09 MCHC 34.8 g/dL (32.0-36.0) 06/08/22 06:09 RDW Std Deviation 41.7 fL (36.4-46.3) 06/08/22 06:09 RDW Coeff of [place] 12.4 % (11.5-14.5) 06/08/22 06:09 Plt Count 215 K/uL (130-400) 06/08/22 06:09 MPV 10.3 fL (9.4-12.4) 06/08/22 06:09 Immature Gran % (Auto) 0.2 % 06/07/22 16:41 Neut % (Auto) 61.5 % 06/07/22 16:41 Lymph % (Auto) 29.4 % 06/07/22 16:41 [place] % (Auto) 6.3 % 06/07/22 16:41 Eos % (Auto) 2.4 % 06/07/22 16:41 Baso % (Auto) 0.2 % 06/07/22 16:41 Neut # (Auto) 5.60 K/uL (1.4-6.5) 06/07/22 16:41 Lymph # (Auto) 2.68 K/uL (1.2-3.4) 06/07/22 16:41 [place] # (Auto) 0.57 K/uL (0.24-0.82) 06/07/22 16:41 Eos # (Auto) 0.22 K/uL (0-0.50) 06/07/22 16:41 Baso # (Auto) 0.02 K/uL (0-0.2) 06/07/22 16:41 Immature Gran # (Auto) 0.02 K/uL (0.00-0.02) 06/07/22 16:41 PT 10.5 Seconds (9.0-12.0) 06/07/22 16:41 INR 1.0 (0.9-1.1) 06/07/22 16:41 APTT 25.1 Seconds (21.0-31.0) 06/07/22 16:41 PTT Ratio 0.9 06/07/22 16:41 Sodium 137 mmol/L (136-145) 06/08/22 06:09 Potassium 4.2 mmol/L (3.5-5.1) 06/08/22 06:09 Chloride 105 mmol/L (98-107) 06/08/22 06:09 Carbon Dioxide 27 mmol/L (21-32) 06/08/22 06:09 Anion Gap 5 (3-11) 06/08/22 06:09 BUN 18 mg/dl (6-23) 06/08/22 06:09 Creatinine 1.38 mg/dl (0.6-1.4) 06/08/22 06:09 Est Cr Clr Drug Dosing 81.3 ml/min 06/08/22 06:09 Est GFR ( Amer) 68.6 ml/min 06/08/22 06:09 Est GFR (Non-Af Amer) 59.2 ml/min 06/08/22 06:09 BUN/Creatinine Ratio 13.0 (10-20) 06/08/22 06:09 Glucose 92 mg/dl (70-99(Fasting)) 06/08/22 06:09 Calcium 9.0 mg/dl (8.5-10.1) 06/08/22 06:09 Phosphorus 4.2 mg/dl (2.5-4.9) 06/08/22 06:09 Magnesium 2.0 mg/dl (1.7-2.4) 06/08/22 06:09 Total Bilirubin 0.4 mg/dl (0.2-1.0) 06/07/22 16:41 AST 32 U/L (13-39) 06/07/22 16:41 ALT 41 U/L (7-52) 06/07/22 16:41 Alkaline Phosphatase 110 U/L (34-104) H 06/07/22 16:41 Troponin I High Sens 13.6 pg/ml (0-20) 06/07/22 16:41 Total Protein 9.1 gm/dl (6.0-8.3) H 06/07/22 16:41 Albumin 4.8 gm/dl (3.4-5.0) 06/07/22 16:41 Globulin 4.3 gm/dl (2.5-4.0) H 06/07/22 16:41 Albumin/Globulin Ratio 1.1 (0.9-2) 06/07/22 16:41 Urine Color Yellow 06/07/22 Unknown Urine Appearance Clear (Clear) 06/07/22 Unknown Urine pH 6.5 (4.5-7.5) 06/07/22 Unknown Ur Specific [place] 1.025 (1.000-1.030) 06/07/22 Unknown Urine Protein Negative (Negative) 06/07/22 Unknown Urine Glucose (UA) Negative (Negative) 06/07/22 Unknown Urine Ketones Trace (Negative) H 06/07/22 Unknown Urine Blood Negative (Negative) 06/07/22 Unknown Urine Nitrite Negative (Negative) 06/07/22 Unknown Urine Bilirubin Negative (Negative) 06/07/22 Unknown Urine Urobilinogen Negative (Negative) 06/07/22 Unknown Ur Leukocyte Esterase Negative (Negative) 06/07/22 Unknown SARS-CoV-2, RNA, NAAT NEGATIVE (NEGATIVE) 06/07/22 18:30 Impressions Chest X-Ray 06/08/22 07:00 XR chest 1V portable CLINICAL HISTORY: pneumothorax TECHNIQUE: Single frontal radiograph of the chest was obtained. Comparison: Comparison is made to chest radiograph 06/07/2022 FINDINGS: A right chest tube is seen with the side-port and tip in the thoracic cavity. The cardiomediastinal silhouette is normal. Emphysematous changes are seen. Previously noted right pneumothorax is further decreased in size. Subcutaneous emphysema is noted. IMPRESSION: The right pneumothorax is further decreased in size status post chest tube placement. ACT 112: Negative or not required by law. Electronically signed by: Luke Lloyd M.D. 06/08/2022 11:34 AM
--- NOTE | 2022-06-08 15:06 | CT Scan Report ---
CT chest diagnostic wo con CLINICAL HISTORY: ptx, eval for structural lung disease TECHNIQUE: Multidetector row helical CT of the chest was performed. Coronal and sagittal reformations were obtained. Automated dose lowering techniques and/or adjustment according to patient size were u tilized for this exam. CT DOSE: 842.56 mGy.cm Comparison: Comparison is made to chest radiograph 06/08/2022 FINDINGS: Lungs and pleura: Paraseptal emphysema is seen with atelectasis in the dependent lung. There is a sma ll right pneumothorax. A right chest tube terminates in the right hemithorax. Heart and pericardium: Heart size is normal. No pericardial effusion. Vessels: Unremarkable. Mediastinum and eddie: Unremarkable. Chest wall and lower neck: Right subcutaneous emphysema is seen. Abdomen: A hiatal hernia is seen. Bones: Minimal degenerative changes are seen. IMPRESSION: 1. There is a small residual right pneumothorax. Emphysema and atelectasis noted. 2. Right chest tube in satisfactory position. Subcutaneous emphysema is seen. ACT 112: Negative or not required by law. Electronically signed by: Luke Lloyd M.D. 06/08/2022 3:04 PM
[2022-06-08] MEDS: KETOROLAC TROMETHAMINE 15 MG/ML VIAL IV PRN (23:28)
[2022-06-09 06:36] LABS: Basophils # (auto) 0.03 K/uL (0-0.2); Basophils % (auto) 0.2 %; Eosinophils # (auto) 0.27 K/uL (0-0.50); Hematocrit (blood only) 47.5 % (40.1-51.0); Hemoglobin 16.5 g/dl (14.0-18.0); Immature Granulocytes # (auto) 0.05 K/uL (0.00-0.02); Immature Granulocytes % (auto) 0.4 %; Lymphocytes # (auto) 2.72 K/uL (1.2-3.4); Lymphocytes % (auto) 20.6 %; Mean Corpuscular Hemoglobin 31.5 pg (25.0-34.0); Mean Corpuscular Hgb Conc 34.7 g/dL (32.0-36.0); Mean Corpuscular Volume 90.8 fL (80.0-100.0); Mean Platelet Volume 10.9 fL (9.4-12.4); Monocytes # (auto) 0.89 K/uL (0.24-0.82); Monocytes % (auto) 6.7 %; Neutrophils # (auto) 9.24 K/uL (1.4-6.5); Neutrophils % (auto) 70.1 %; Platelet Count 215 K/uL (130-400); RDW Coefficient of Variation 12.2 % (11.5-14.5); RDW Standard Deviation 40.4 fL (36.4-46.3); Red Blood Count 5.23 M/uL (4.63-6.08)
[2022-06-09 07:11] LABS: BUN Creatinine Ratio 14.1 (10-20); Calcium 9.1 mg/dl (8.5-10.1); Creatinine Clr Calc Pharmacy 79.7 ml/min; Est GFR (African American) 66.3 ml/min; Est GFR (Non-African American) 57.2 ml/min; Potassium 4.5 mmol/L (3.5-5.1)
--- NOTE | 2022-06-09 07:46 | Pulmonology Progress Note ---
Date of Service June 09, 2022 Assessment & Plan (1) Tension pneumothorax: Plan: 51-year-old male presenting with spontaneous pneumothorax who is status post RIGHT-sided chest tube placement. Consulted for continued management of chest tube. * Likely represents ruptured bleb as patient with significant emphysematous changes throughout the lung apices RIGHT greater than left. * CXR this AM shows improvement in pneumothorax. * Persistent leak on assessment today. * Keep chest tube to -20 cmH2O. * Will reevaluate later today with hopes of resolving leak. * Continue with pain management as you are. Thank you for allowing us to participate in the care of this patient. (2) Shortness of breath: Admission and Anticipated Discharge Date Admission Date: June 07, 2022 Supervising Physician Co-Signing Physician Notes Patient seen and examined. EMR reviewed. Discussed with SHERIDAN and agree with assessment and plan as noted. When we assessed the patient this morning he had a grade 1 airleak. Chest x-ray does not demonstrate significant reaccumulation of pneumothorax. Continue chest tube to suction in hopes of resolution of the air leak. Repeat chest x-ray in the a.m.. If the air leak resolves and no pneumothorax is identified on the chest x-ray, we will pursue a trial of tube clamping to see how he responds prior to removal of the tube. 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 Pain control per primary service. Subjective Patient was seen and evaluated at bedside. He complains of ongoing discomfort to the RIGHT-sided chest with particular focus to the chest tube insertion site. He does admit that he has not had pain medications recently. Otherwise, he denies complaints of shortness of breath, hemoptysis, nausea, vomiting, abdominal discomfort Review of Systems Review of Systems: A complete 6 point review of systems was reviewed with the patient with pertinent positives and negatives as per history of present illness. All else were negative. Physical Exam Physical Exam: VITAL SIGNS - Vital signs and nursing notes were reviewed. GENERAL - 51-year-old male appearing his stated age who is in no acute distress. Communicates well with provider and answers questions appropriately. NECK - Neck with FROM. Supple to palpation. LUNGS - Chest tube in place to the RIGHT sided chest wall. Chest tube with persistent leak. Distant breath sounds on the RIGHT sided lung painting. CARDIAC - RRR with S1/S2. No murmur, rubs, or gallops appreciated. No reproducible tenderness to palpation appreciated over the anterior chest wall. ABDOMEN - Abdominal contour flat without pulsations or visible masses. BS normoactive all four quadrants. No tenderness to palpation. EXTREMITIES - No clubbing or peripheral cyanosis. No pretibial edema present. +3/5 radial and dorsalis pedis pulses palpated throughout. Results & Data Results & Data ([facility]) Vital Signs (Past 12 Hours) Vital Signs Temp Pulse Pulse Resp BP Pulse Ox O2 Del Method 06/09/22 07:41 36.6 C 80 20 143/77 H 93 Room Air 06/09/22 03:03 36.6 C 54 L 18 130/83 95 Room Air 06/08/22 22:00 53 L 06/08/22 22:36 36.3 C L 58 L 18 120/88 96 Room Air 06/08/22 19:55 Room Air PG Care Time/CCT Total # of Minutes Spent Total Time Spent with Patient: Total time spent is greater than 50% in coordination of care (as documented) at patient's floor/unit and/or counseling patient: Coding Level of Care Code 54951 SUB INP/OBS CARE 2/35MIN Diagnoses Tension pneumothorax J93.0 Shortness of breath R06.02 Time Spent (min) 32
[2022-06-09] MEDS: KETOROLAC TROMETHAMINE 15 MG/ML VIAL IV PRN ×3 (08:27→22:29)
--- NOTE | 2022-06-09 08:43 | XRay Report ---
XR chest 1V portable CLINICAL HISTORY: f/u TECHNIQUE: Single frontal radiograph of the chest was obtained. Comparison: Comparison is made to chest radiograph 06/08/2022 FINDINGS: Exam is limited by underpenetration. Chest tube is again seen in the right hemithorax. The cardiomedi astinal silhouette is normal. The lungs are clear. There may be trace residual pneumothorax in the ap ex, however this is nonspecific given underpenetration. Subcutaneous emphysema is seen on the right. IMPRESSION: Stable right chest tube. Possible small residual pneumothorax. ACT 112: Negative or not required by law. Electronically signed by: Luke Lloyd M.D. 06/09/2022 8:41 AM
[2022-06-09] MEDS: oxyCODONE/ACETAMINOPHEN 5mg/325mg TAB PO PRN (13:01)
--- NOTE | 2022-06-09 16:40 | Hospitalist Progress Note ---
Date of Service June 09, 2022 Assessment & Plan (1) Tension pneumothorax: (2) Shortness of breath: Plan: Tension pneumothorax Likely secondary to ruptured bleb --Chest CT:There is a small residual right pneumothorax. Emphysema and atelectasis noted. Right chest tube in satisfactory position. Subcutaneous emphysema is seen. 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 having fluid drained about 8 years ago (4) HIV (human immunodeficiency virus infection): Plan: Diagnosed HIV-positive 9 or 10 years ago Continue Biktarvy (5) Depression: Plan: Continue doxepin Plan DVT Px: SCDs for now CODE STATUS: Full code Admission and Anticipated Discharge Date Admission Date: June 07, 2022 Subjective Patient is seen and examined at bedside States having less dyspnea today Reports pleuritic chest discomfort No other complaints Guards at bedside Review of Systems Review of Systems: All systems reviewed & are unremarkable except as noted in Subjective Physical Exam Physical Exam: Physical Exam: Vitals signs as noted above General Appearance:Moderately built and nourished, no apparent distress Head: normocephalic, Atraumatic Eyes: normal inspection, EOMI Neck: supple, Trachea midline Respiratory/Chest: R decreased breath sounds, CTA, +Chest Tube, No accessory muscle use Cardiovascular: S1, S2, No murmur Abdomen/GI:Soft, Non tender, Bowel sounds present Extremities/Musculoskeletal:normal inspection, no edema Neurologic/Psych:AAOX3, grossly no focal neurological deficits Skin: normal color, warm Results & Data Results & Data ([facility]) Vital Signs (Past 12 Hours) Vital Signs Temp Pulse Pulse Resp BP BP Pulse Ox 06/09/22 15:45 81 06/09/22 15:12 37.5 C 83 20 114/63 90 06/09/22 10:06 37.3 C 87 20 132/78 91 06/09/22 08:00 72 06/09/22 08:00 06/09/22 07:41 36.6 C 80 20 143/77 H 93 O2 Del Method 06/09/22 15:45 06/09/22 15:12 Room Air 06/09/22 10:06 Room Air 06/09/22 08:00 06/09/22 08:00 Room Air 06/09/22 07:41 Room Air Laboratory Results Short CBC 06/09/22 Range/Units 05:57 WBC 13.20 H (4.8-10.8) K/ul Hgb 16.5 (14.0-18.0) g/dl Hct 47.5 (40.1-51.0) % Plt Count 215 (130-400) K/uL BMP 06/09/22 05:57 Sodium 136 Potassium 4.5 Chloride 104 Carbon Dioxide 28 BUN 20 Creatinine 1.42 H Glucose 89 Calcium 9.1
[2022-06-10] MEDS: oxyCODONE/ACETAMINOPHEN 5mg/325mg TAB PO PRN (06:06)
[2022-06-10 07:40] LABS: Hematocrit (blood only) 43.7 % (40.1-51.0); Hemoglobin 15.5 g/dl (14.0-18.0); Mean Corpuscular Hemoglobin 32.1 pg (25.0-34.0); Mean Corpuscular Hgb Conc 35.5 g/dL (32.0-36.0); Mean Corpuscular Volume 90.5 fL (80.0-100.0); Mean Platelet Volume 10.8 fL (9.4-12.4); Platelet Count 213 K/uL (130-400); RDW Coefficient of Variation 12.3 % (11.5-14.5); RDW Standard Deviation 40.7 fL (36.4-46.3); Red Blood Count 4.83 M/uL (4.63-6.08); White Blood Count 16.31 K/ul (4.8-10.8)
[2022-06-10] MEDS: KETOROLAC TROMETHAMINE 15 MG/ML VIAL IV PRN ×2 (08:09→16:14)
[2022-06-10 08:53] LABS: BUN Creatinine Ratio 14.5 (10-20); Est GFR (African American) 64.6 ml/min; Est GFR (Non-African American) 55.8 ml/min
--- NOTE | 2022-06-10 09:12 | Pulmonology Progress Note ---
Date of Service June 10, 2022 Assessment & Plan (1) Tension pneumothorax: Plan: 51-year-old male presenting with spontaneous pneumothorax who is status post RIGHT-sided chest tube placement. Consulted for continued management of chest tube. * Unfortunately, there appears to be an increase in the RIGHT-sided pneumothorax despite chest leak and no change in symptoms on exam. * Suction was placed up to -40 cm H2O. No leak noted. Continue for now. * Will repeat chest x-ray later this afternoon to check for resolution. * Patient's pain is adequately controlled at this point. Prefers Toradol dosing available. Thank you for allowing us to participate in the care of this patient. Please see my attending physician's note for any further recommendations. (2) Shortness of breath: Admission and Anticipated Discharge Date Admission Date: June 07, 2022 Supervising Physician Co-Signing Physician Notes Patient seen and examined. EMR reviewed. Chest x-ray this morning demonstrates small loculated lateral pneumothorax. The patient's tube was returned to suction at 40 cm of water with a small ghosh of air but no persistent air leak. Recommend keeping him on 40 cm water and repeating the chest x-ray in 3 to 4 hours. Depending on findings, repeat CT scan may be warranted. If the patient has persistent bronchopleural fistula despite the chest tube being in good position and with an adequate trial of drainage, he may require referral to a tertiary facility for consideration of endobronchial valve therapy or potential bullectomy and pleurodesis. Subjective Patient is seen and evaluated by myself this morning. He has some mild persistent pain to the RIGHT-sided chest insertion site. Mild pleuritic pain. He reports that Toradol has been more helpful with his discomfort at this point. Repeat chest x-ray is pending. No airleak since last evening. Review of Systems Review of Systems: A complete 6 point review of systems was reviewed with the patient with pertinent positives and negatives as per history of present illness. All else were negative. Physical Exam Physical Exam: VITAL SIGNS - Vital signs and nursing notes were reviewed. GENERAL - 51-year-old male appearing his stated age who is in no acute distress. Communicates well with provider and answers questions appropriately. NECK - Neck with FROM. Supple to palpation. LUNGS - Chest tube in place to the RIGHT sided chest wall. Chest tube with no air leak. Lungs CTA bilaterally. CARDIAC - RRR with S1/S2. No murmur, rubs, or gallops appreciated. No reproducible tenderness to palpation appreciated over the anterior chest wall. ABDOMEN - Abdominal contour flat without pulsations or visible masses. BS normoactive all four quadrants. No tenderness to palpation. EXTREMITIES - No pretibial edema present. Results & Data Results & Data ([facility]) Vital Signs (Past 12 Hours) Vital Signs Temp Pulse Pulse Resp BP Pulse Ox O2 Del Method 06/10/22 08:02 37 C 94 H 18 118/72 93 Room Air 06/10/22 03:40 36.9 C 84 18 147/69 H 92 Room Air 06/09/22 23:00 87 06/09/22 22:41 37.3 C 84 18 129/73 91 Room Air PG Care Time/CCT Total # of Minutes Spent Total Time Spent with Patient: Total time spent is greater than 50% in coordination of care (as documented) at patient's floor/unit and/or counseling patient: Coding Level of Care Code 63828 SUB INP/OBS CARE 3/50MIN Diagnoses Tension pneumothorax J93.0 Shortness of breath R06.02 Time Spent (min) 40
--- NOTE | 2022-06-10 09:16 | XRay Report ---
SINGLE VIEW CHEST CLINICAL HISTORY: Follow-up pneumothorax FINDINGS: An AP, portable, upright chest radiograph is compared to study dated 06/09/2022 and correlat ed with chest CT dated 06/08/2022. The cardiomediastinal silhouette is unremarkable. A right-sided diego st tube is unchanged in position. There is at least a small to moderate residual right-sided pneumoth orax, greatest at the right lung base. Emphysema and chronic interstitial thickening is similar to pr evious. Apical bullae are again noted. Scarring/atelectasis is present at the lung bases. No large pl eural effusion is seen. There is no left-sided pneumothorax identified. The bony thorax is grossly in tact. Mild subcutaneous emphysema is seen in the right chest wall. IMPRESSION: 1. A right-sided chest tube is unchanged in position, noting a small to moderate residual pneumothora x at the right lung base. This appears increased in size from yesterday. 2. Emphysema. ACT 112: Negative or not required by law. Electronically signed by: Mina Barlow M.D. 06/10/2022 9:15 AM
[2022-06-10] MEDS ORDERED: SODIUM CHLORIDE 0.65% NA SOLN 45 ML (OCEAN) PRN (10:14)
--- NOTE | 2022-06-10 13:21 | XRay Report ---
XR chest 1V portable HISTORY: Follow-up right-sided pneumothorax. COMPARISON: Chest 06/10/2022. FINDINGS: The right-sided chest tube is unchanged in position and is located within the right midlung zone. Small moderate residual pneumothorax persists at the right lung base. The left lung is clear. Patchy densities at the right medial lung base remain unchanged. The heart is normal in size. Emphyse ma again noted. No significant midline shift. IMPRESSION: 1. No significant change in the small to moderate right pneumothorax. 2. Right-sided chest tube is unchanged in position. 3. Emphysema ACT 112: Negative or not required by law. Electronically signed by: Donald Oneill M.D. 06/10/2022 1:20 PM
--- NOTE | 2022-06-10 14:08 | Hospitalist Progress Note ---
Date of Service June 10, 2022 Assessment & Plan (1) Tension pneumothorax: (2) Shortness of breath: Plan: Tension pneumothorax Likely secondary to ruptured bleb --Chest CT:There is a small residual right pneumothorax. Emphysema and atelectasis noted. Right chest tube in satisfactory position. Subcutaneous emphysema is seen. -- Continue chest tube Appreciate pulmonary input Pain control Saturating low 90s on room air CXR today showed loculated bilateral pneumothorax. Continue chest tube with suction as recommended by pulmonology. If repeat chest x-ray shows no improvement, may need to be transferred to tertiary facility for endobronchial valve therapy/potential bullectomy/ pleurodesis (3) Pericardial effusion: Plan: H/O Pericardial effusion Substernal scar and patient reports having fluid drained about 8 years ago (4) HIV (human immunodeficiency virus infection): Plan: Diagnosed HIV-positive 9 or 10 years ago Continue Biktarvy (5) Depression: Plan: Continue doxepin Plan DVT Px: SCDs for now CODE STATUS: Full code Admission and Anticipated Discharge Date Admission Date: June 07, 2022 Subjective Patient is seen and examined at bedside CXR today showed pneumothorax which is slightly increased from yesterday No persistent air leak with chest tube. Still has some pleuritic chest discomfort No other complaints Review of Systems Review of Systems: All systems reviewed & are unremarkable except as noted in Subjective Physical Exam Physical Exam: Physical Exam: Vitals signs as noted above General Appearance:Moderately built and nourished, no apparent distress Head: normocephalic, Atraumatic Eyes: normal inspection, EOMI Neck: supple, Trachea midline Respiratory/Chest: R decreased breath sounds, CTA, +Chest Tube, No accessory muscle use Cardiovascular: S1, S2, No murmur Abdomen/GI:Soft, Non tender, Bowel sounds present Extremities/Musculoskeletal:normal inspection, no edema Neurologic/Psych:AAOX3, grossly no focal neurological deficits Skin: normal color, warm Results & Data Results & Data ([facility]) Vital Signs (Past 12 Hours) Vital Signs Temp Pulse Pulse Resp BP Pulse Ox O2 Del Method 06/10/22 11:45 36.4 C L 82 20 129/80 91 Room Air 06/10/22 08:00 100 H 06/10/22 08:00 Room Air 06/10/22 08:02 37 C 94 H 18 118/72 93 Room Air 06/10/22 03:40 36.9 C 84 18 147/69 H 92 Room Air Laboratory Results Short CBC 06/10/22 Range/Units 06:57 WBC 16.31 H (4.8-10.8) K/ul Hgb 15.5 (14.0-18.0) g/dl Hct 43.7 (40.1-51.0) % Plt Count 213 (130-400) K/uL BMP 06/10/22 06:57 Sodium 134 L Potassium 4.0 Chloride 104 Carbon Dioxide 25 BUN 21 Creatinine 1.45 H Glucose 91 Calcium 9.0
--- NOTE | 2022-06-10 15:38 | CT Scan Report ---
CT SCAN OF THE CHEST WITHOUT IV CONTRAST CLINICAL HISTORY: Right pneumothorax. Chest tube. COMPARISON STUDY: Chest x-ray dated 06/10/2022. Chest CT dated 06/08/2022. TECHNIQUE: CT scan of the thorax was performed from the thoracic inlet to the upper abdomen. Images are reviewed in the axial, sagittal, and coronal planes. IV contrast was not administered for this ex amination as per the referring clinician. A dose lowering technique was utilized adhering to the johanne Cortez. The examination is degraded by motion artifact. CT DOSE: 751.15 mGy.cm FINDINGS: Thyroid: Imaged portions of the thyroid gland are normal in size and attenuation. Thoracic aorta: The thoracic aorta is normal in caliber and demonstrates bovine variant arch anatomy. Heart: The heart is normal in size and without pericardial effusion. Lungs and pleural spaces: There is advanced emphysema with large apical bullae. A right-sided chest t ube enters between the right lateral 5th and 6th ribs. Although difficult to definitively localize by CT, this appears to extend through the right upper lobe parenchyma and terminates within a large rig ht upper lobe. There is near fluid level within the bladder and a small right pleural effusion with r ight basilar consolidation.. There is a moderate persistent right anterior and basilar pneumothorax. Postsurgical changes in the right lung base. There is left basilar scarring/atelectasis. The left spiek g parenchyma appears clear Mediastinum: There is no mediastinal lymphadenopathy. Karen: Not well assessed without IV contrast. Axillae: There is no axillary lymphadenopathy. Upper abdomen: Partially visualized upper abdominal viscera is within normal limits. Skeletal structures: No lytic or blastic bony lesions are seen. Soft tissues: Fluid, edema, and subcutaneous emphysema are present within the right chest wall. IMPRESSION: 1. A right-sided chest tube is in place as above. Although difficult to definitively localize by CT, this appears to extend through the right upper lobe lung parenchyma and terminate within a large righ t upper lobe bleb. 2. There is an air-fluid level within this bleb and a small right pleural effusion with dependent con solidation. The pleural effusion has increased from 06/08/2022. 3. There is a moderate residual anterior/basilar right pneumothorax. 4. Additional findings as above. ACT 112: Negative or not required by law. Electronically signed by: Mina Barlow M.D. 06/10/2022 3:37 PM
[2022-06-10] MEDS ORDERED: LIDOCAINE 2% LOCAL 50 ML VIAL ONE (15:47)
[2022-06-10] MEDS ORDERED: HYDROmorphone INJ 1 MG/ML SYRINGE IV STA ×2 (15:47→16:19)
[2022-06-10] MEDS ORDERED: HYDROmorphone INJ 1 MG/ML SYRINGE ONE (15:48)
[2022-06-10] MEDS ORDERED: VANCOMYCIN CONSULT ACTIVE PRN (16:19)
[2022-06-10] MEDS ORDERED: PIPERACILLIN/TAZOBACTAM 4.5 GM in DEXTROSE 5% 100 ML IV SCH (16:30)
--- NOTE | 2022-06-10 16:42 | Procedure Note ---
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 Procedure: The patient had had a 20 [place] chest tube placed on presentation in the emergency room due to pneumothorax. CT scan today demonstrated enlarging pn eumothorax and the tube appeared to be no longer functional. It was elected to remove that tube and replace it with a new chest tube. The patient was placed in a left side up decubitus position. The dressing of the existing 20 [place]ian chest tube was taken down. Once the dressing was taken down, there was purulent foul-smelling material emanating from the chest tube insertion site. Sutures were taken down and the tube was removed. Approximately 5 mL of angelica pus was expressed from the chest tube site. A sample was taken for gram stain and culture. That wound was left open. After the chest tube was removed, chlorhexidine was used to establish a sterile field on the posterior axillary line. An area lateral to the nipple in the posterior clavicular line was anesthetized using lidocaine. A small skin sander was made with a scalpel. Additional anesthesia was achieved with instillation through an 18-gauge needle until I was able to aspirate air. The syringe was withdrawn leaving the needle in place. A wire was passed through the needle without difficulty and the needle removed leaving the wire within the pleural space. A 14 [place] dilator was passed over the wire and used to dilate the tract. A 14 [address] [place] skater pigtail locking catheter was then advanced over the wire into the pleural space. The stiffening mechanism and wire were removed. The catheter was locked in place. It was attached to the atrium with bubbling and return of about 100 cc of slightly cloudy fluid. The catheter was secured using the StatLock system. There appeared to be an intermittent air leak present. Post procedure chest x-ray is pending. In light of the soft tissue infection, we will follow-up on cultures. The patient will be initiated on Zosyn and vancomycin. Blood cultures and proc alcitonin have also been requested. Await follow-up chest x-ray for placement of the tube. If the patient has persistent bronchopleural fistula or fails to improve with this intervention, consideration for transfer to a tertiary facility for additional intervention may be appropriate The patient tolerated the procedure well without obvious complication Coding CPT Codes Pulmonary/Thoracic - Pulmonary and Thoracic: 11839 Remove lung catheter ([id number]) Pulmonary/Thoracic - Pulmonary and Thoracic: 55175 Pleural drainage w/o imaging ([id number]) [facility] [place] Procedure Codes (Charges) Pulmonary/Thoracic Procedure 1: Pulmonary and Thoracic: 36879 Remove lung catheter Procedure 2: Pulmonary and Thoracic: 44286 Pleural drainage w/o imaging
[2022-06-10] MEDS ORDERED: VANCOMYCIN HCL 2,250 MG in SODIUM CHLORIDE 0.9% 500 ML IV ONE (16:45)
[2022-06-10] MEDS ORDERED: PIPERACILLIN/TAZOBACTAM 4.5 GM in DEXTROSE 5% 100 ML IV ONE (16:45)
--- NOTE | 2022-06-10 16:47 | XRay Report ---
XR chest 1V portable CLINICAL HISTORY: s/p Right chest tube placement TECHNIQUE: Single frontal radiograph of the chest was obtained. Comparison: Comparison is made to chest radiograph 06/10/[address] chest 06/10/2022 FINDINGS: Interval placement of a right pigtail catheter. Previously noted chest tube has been removed. The car diomediastinal silhouette is normal. Lungs are underinflated but clear. There is a trace right pneumo thorax measuring approximately 4 mm. IMPRESSION: Interval removal of chest tube and placement of right pigtail catheter. Trace right pneumothorax yobani ins. ACT 112: Negative or not required by law. Electronically signed by: Luke Lloyd M.D. 06/10/2022 4:44 PM
[2022-06-10 20:14] LABS: Base Excess ABG 1.5 mEq/L (-9-1.8); HCO3 ABG 26 mmol/L (19-24); Oxygen Saturation ABG 97.8 % (90-95); PCO2 ABG 39 mmHg (35-46); PO2 ABG 84 mmHg (80-95); pH ABG 7.43 (7.35-7.45)
[2022-06-10] MEDS: HYDROmorphone INJ 1 MG/ML SYRINGE IV PRN (20:23)
--- NOTE | 2022-06-10 20:23 | XRay Report ---
XR chest 1V portable CLINICAL HISTORY: low o2 TECHNIQUE: Single frontal radiograph of the chest was obtained. Comparison: Comparison is made to chest radiograph 06/10/2022 FINDINGS: Stable right pigtail catheter. Exam is limited by underpenetration. Cardiac silhouette is stable. The lungs are clear. No definite pneumothorax is seen. IMPRESSION: Stable right pigtail catheter. No significant pneumothorax is seen. ACT 112: Negative or not required by law. Electronically signed by: Luke Lloyd M.D. 06/10/2022 8:21 PM
[2022-06-10] MEDS ORDERED: SODIUM CHLORIDE 0.9% 1000ML 1,000 ML IV ONE (20:44)
[2022-06-10 20:51] LABS: Allen Test pos (Pos)
[2022-06-10] MEDS: PIPERACILLIN/TAZOBACTAM 3.375 GM in DEXTROSE 5% 100 ML IV SCH (21:49)
[2022-06-11] MEDS: VANCOMYCIN HCL 1,000 MG in SODIUM CHLORIDE 0.9% 250 ML IV SCH ×2 (00:31→11:46)
[2022-06-11] MEDS ORDERED: OPTIRAY 320 500ml IV ONE (02:54)
[2022-06-11] MEDS: PIPERACILLIN/TAZOBACTAM 3.375 GM in DEXTROSE 5% 100 ML IV SCH ×3 (07:44→20:56)
[2022-06-11] MEDS: HYDROmorphone INJ 1 MG/ML SYRINGE IV PRN ×2 (07:45→15:43)
--- NOTE | 2022-06-11 08:13 | Pulmonology Progress Note ---
Date of Service June 11, 2022 Assessment & Plan (1) Tension pneumothorax: Plan: Impression: 51-year-old male presenting with spontaneous pneumothorax who is status post RIGHT-sided chest tube placement. Chest tube was poorly functional with increasing pneumothorax and was removed yesterday. There was purulent drainage from the chest tube insertion site cultures are pending. Patient had an elevated procalcitonin and evidence of soft tissue infection. The tube also appeared to be extending to one of the apical bullae with a new air-fluid level consistent with probable bullitis. Recommendations; 1. Secondary pneumothorax: The pigtail catheter appears to have been effective in alleviating the pneumothorax. Will be clamped today and we will plan on r epeating chest x-ray in about 4 hours. If the lung remains up, the tube will be discontinued. 2. Soft tissue infection with probable bullitis: Day #2 Zosyn vancomycin. Pharmacy dosing. Await cultures. The patient may require a 2-week course of antimicrobial therapy and follow-up imaging. We will follow fever curve, white blood cell count, and procalcitonin. 3. Pain management per primary service. Discussed with patient nursing at bedside (2) Shortness of breath: Admission and Anticipated Discharge Date Admission Date: June 07, 2022 Subjective Patient seen and examined. EMR reviewed. Overnight the patient continued chest pain. CT angiogram was performed which showed resolution of the pneumothorax with possible right upper lobe bullitis. He is fevers and chills are improved. Continues to have pain at the chest tube insertion site. No coughing or sputum production. Review of Systems Review of Systems: All systems reviewed & are unremarkable except as noted in Subjective Physical Exam Constitutional: WD/WN, vitals as above Neck: trachea midline, no thyromegaly Respiratory: normal respiratory effort, lungs clear to auscultation Cardiovascular: RRR, no murmur, no edema Chest (Breasts): Additional Comments: Chest tube to 20 cm wall suction with no air leak. Gastrointestinal (Abdomen): normal bowel sounds, soft, nontender, no hepatosplenomegaly Musculoskeletal: Extremities: extremities normal to inspection Skin: no rashes, warm and dry Neurologic: Nonfocal exam Lymphatic: no cervical lymphadenopathy Results & Data Results & Data ([facility]) Vital Signs (Past 12 Hours) Vital Signs Temp Pulse Pulse Resp BP Pulse Ox O2 Del Method 06/11/22 07:07 36.9 C 79 18 128/73 95 Oxymask 06/11/22 03:37 36.4 C L 75 22 133/82 97 Oxymask 06/10/22 23:35 67 06/10/22 22:42 36.6 C 72 18 142/74 H 96 Oxymask O2 Flow Rate 06/11/22 07:07 4 06/11/22 03:37 4 06/10/22 23:35 06/10/22 22:42 4 Laboratory Results 06/10/22 06:57 06/10/22 06:57 Procalcitonin 0.6 Gram stain of chest tube drainage site with gram-positive cocci some which were intracellular Diagnostic Findings Chest x-ray from this morning was independently reviewed. Chest tube appears to be in good position. No evidence of pneumothorax. CT angiogram from last night was reviewed. Bullous emphysema again identified. No evidence of pneumothorax. There is an air-fluid level in the apical bulla on the right. PG Care Time/CCT Total # of Minutes Spent Total Time Spent with Patient: Total time spent is greater than 50% in coordination of care (as documented) at patient's floor/unit and/or counseling patient: Coding Level of Care Code 15456 SUB INP/OBS CARE 2/35MIN Diagnoses Tension pneumothorax J93.0 Shortness of breath R06.02
[2022-06-11 08:38] LABS: Basophils # (auto) 0.02 K/uL (0-0.2); Basophils % (auto) 0.1 %; Eosinophils # (auto) 0.16 K/uL (0-0.50); Eosinophils % (auto) 1.1 %; Hematocrit (blood only) 42.6 % (40.1-51.0); Hemoglobin 14.6 g/dl (14.0-18.0); Immature Granulocytes # (auto) 0.12 K/uL (0.00-0.02); Immature Granulocytes % (auto) 0.8 %; Lymphocytes # (auto) 2.25 K/uL (1.2-3.4); Lymphocytes % (auto) 14.9 %; Mean Corpuscular Hemoglobin 31.6 pg (25.0-34.0); Mean Corpuscular Hgb Conc 34.3 g/dL (32.0-36.0); Mean Corpuscular Volume 92.2 fL (80.0-100.0); Mean Platelet Volume 10.6 fL (9.4-12.4); Monocytes # (auto) 1.07 K/uL (0.24-0.82); Monocytes % (auto) 7.1 %; Neutrophils # (auto) 11.47 K/uL (1.4-6.5); Platelet Count 189 K/uL (130-400); RDW Coefficient of Variation 12.4 % (11.5-14.5); RDW Standard Deviation 42.4 fL (36.4-46.3); Red Blood Count 4.62 M/uL (4.63-6.08); White Blood Count 15.09 K/ul (4.8-10.8)
[2022-06-11 09:00] LABS: BUN Creatinine Ratio 15.3 (10-20); Calcium 8.7 mg/dl (8.5-10.1); Creatinine Clr Calc Pharmacy 86.6 ml/min; Est GFR (African American) 73.1 ml/min; Potassium 4.2 mmol/L (3.5-5.1)
--- NOTE | 2022-06-11 09:43 | Pharmacy Report ---
Pharmacy PK ABX Note - Date of Service June 11, 2022 - Assessment and Plan Assessment 51 year old M with spontaneous pneumothorax receiving zosyn + vancomycin for treatment of soft tissue infection w/ probable bullitis. Drainage from chest tube pending, blood cultures pending. Leukocytosis plateaued, afebrile, procalcitonin 0.64 on 06/10. New chest tube inserted yesterday. Plan Vancomycin * Loading dose: 2250 mg IV x 1 * Maintenance dose: 1000 mg IV every 12 hours * Regimen is predicted to achieve target AUC/TERELL of 400-600 mg/L.hr * Random ordered with AM labs 06/12 Pharmacy will continue to follow and will adjust dose/frequency as necessary. Thank you. Pharmacy has transitioned to AUC monitoring for vancomycin. AUC/TERELL is the preferred PK/PD target and is associated with decreased risk of nephrotoxicity compared to traditional trough targets.
--- NOTE | 2022-06-11 10:12 | CT Scan Report ---
CT ANGIOGRAM OF THE CHEST CLINICAL HISTORY: Hypoxia. COMPARISON STUDY: Chest CT dated 06/10/2022. Chest x-ray dated 06/10/2022. TECHNIQUE: Following the IV administration of 108 cc of Optiray 320, CT angiogram of the chest was pe rformed from the upper abdomen to the thoracic inlet utilizing the pulmonary embolus protocol. Images are reviewed in the axial, sagittal, and coronal planes. 3-D MIPS images are created and assessed. I V contrast was administered without complication. A dose lowering technique was utilized adhering to the principles of ALARA. CT DOSE: 948.77 mGy.cm FINDINGS: Thyroid: Imaged portions of the thyroid gland are normal in size and attenuation. Thoracic aorta: The thoracic aorta is normal in caliber and demonstrates the examination is degraded by motion artifact, as well as by streak artifact from the right arm which could not be elevated abov e the chest. Bovine variant Arch anatomy. No dissection is seen. Pulmonary vasculature: The pulmonary trunk is normal in caliber. There are no filling defects identif ied in main, lobar, or proximal segmental pulmonary branches to suggest pulmonary embolus. Evaluation of the distal segmental and subsegmental branches is degraded by streak and motion artifact. Heart: The heart is normal in size and without pericardial effusion. Lungs and pleural spaces: There is advanced emphysema with large apical bullae. The right-sided chest tube seen yesterday has been removed and a pigtail catheter has been placed at the right lung base. This enters laterally between the 7th and 8th ribs. No significant residual right-sided pneumothorax is identified. An air-fluid level is again seen within a large right upper lobe bleb. There is a smal l right pleural effusion with dense right basilar consolidation. The pleural effusion has modestly de creased in size from previous. Atelectasis/consolidation throughout the right lower lobe has increase d. There is segmental atelectasis at the left lung base. Mediastinum: There is no mediastinal lymphadenopathy. Karen: Clear. Axillae: There is no axillary lymphadenopathy. Upper abdomen: There is a small hiatal hernia. Partially visualized upper abdominal viscera is otherw ise within normal limits. Skeletal structures: No lytic or blastic bony lesions are seen. Soft tissues: Fluid, edema, and subcutaneous emphysema are present within the right chest wall. IMPRESSION: 1. Streak and motion compromised examination. 2. There is no evidence of pulmonary embolus in the main, lobar, or proximal segmental pulmonary catrachito tessa. 3. Yesterday's right-sided chest tube has been replaced with a pigtail catheter. There is no residual pneumothorax identified. 4. There is a small right pleural effusion. This has decreased from yesterday. 5. There is increasing atelectasis/consolidation throughout the right lower lobe as compared to yeste rday. 6. Atelectasis at the left lung base has also increased. 7. Cardiomegaly and emphysema. 8. Additional findings as above. ACT 112: Negative or not required by law. Electronically signed by: Mina Barlow M.D. 06/11/2022 10:11 AM
--- NOTE | 2022-06-11 10:13 | XRay Report ---
XR chest 1V portable CLINICAL HISTORY: f/u COMPARISON STUDY: Chest radiograph June 10, 2022. Chest CT June 11, 2022. FINDINGS: Right basilar pleural catheter is in place. Adjacent lucency may reflect a small loculated pneumothorax. The pneumothorax has decreased in size and chest CT June 10, 2022. Mild right upper lung airspace opacity is noted. Right lower lung opacity persists. Cardiac size is normal. Mediastina l contours are stable. IMPRESSION: 1. Right basilar pleural catheter in place. Possible small adjacent loculated pneumothorax. Pneumotho rax significantly decreased in size since chest CT of June 10, 2022. 2. Right lung airspace opacities, as above. ACT 112: Negative or not required by law. Electronically signed by: Avila Abreu M.D. 06/11/2022 10:12 AM
[2022-06-11] MEDS: oxyCODONE/ACETAMINOPHEN 5mg/325mg TAB PO PRN ×2 (11:45→20:55)
--- NOTE | 2022-06-11 15:05 | XRay Report ---
SINGLE VIEW CHEST CLINICAL HISTORY: Follow-up pneumothorax FINDINGS: An AP, portable, upright chest radiograph is compared to chest x-ray and chest CT dated 05/30. The heart is enlarged. A pigtail catheter is again seen at the right lung base. No pneumothor ax is identified. Emphysema and chronic interstitial thickening is similar to previous. There is a sm all right pleural effusion and bibasilar airspace opacities persist, right greater than left. The bon y thorax is grossly intact. IMPRESSION: 1. A pigtail catheter is again seen at the right lung base. No pneumothorax is clearly identified. 2. Cardiomegaly and emphysema. 3. Small right pleural effusion. 4. Bibasilar opacities persist, right greater than left. ACT 112: Negative or not required by law. Electronically signed by: Mina Barlow M.D. 06/11/2022 3:04 PM
--- NOTE | 2022-06-11 15:50 | Procedure Note ---
Procedure Note Date of Service June 11, 2022 Note Procedure: Removal of 14 Malag[place] pigtail catheter Chest x-ray performed 4 hours after the tube been clamped demonstrated no reaccumulation of the pneumothorax. The patient was placed in the right side up decubitus position. The dressing was taken down. The locking mechanism was released. Under full expiration, the tube was pulled. It was intact. An occlusive dressing including Vaseline impregnated gauze and a Tegaderm was applied over the skin area. We will repeat chest x-ray in the a.m. to ensure no reaccumulation of the pneumothorax. Coding CPT Codes Pulmonary/Thoracic - Pulmonary and Thoracic: 22812 Remove lung catheter ([id number]) [facility] [place] Procedure Codes (Charges) Pulmonary/Thoracic Procedure 1: Pulmonary and Thoracic: 84218 Remove lung catheter
--- NOTE | 2022-06-11 18:29 | Hospitalist Progress Note ---
Date of Service June 11, 2022 Assessment & Plan (1) Tension pneumothorax: (2) Shortness of breath: Plan: Tension pneumothorax Likely secondary to ruptured bleb Hypoxia Catheter site possible infection --Chest CT:There is a small residual right pneumothorax. Emphysema and atelectasis noted. Right chest tube in satisfactory position. Subcutaneous emphysema is seen. --Repeat CT:Streak and motion compromised examination. There is no evidence of pulmonary embolus in the main, lobar, or proximal segmental pulmonary arteries. Yesterday's right-sided chest tube has been replaced with a pigtail catheter. There is no residual pneumothorax identified. There is a small right pleural effusion. This has decreased from yesterday. There is increasing atelectasis/consolidation throughout the right lower lobe as compared to yesterday. Atelectasis at the left lung base has also increased. Cardiomegaly and emphysema. Procalcitonin 0.64 -- Pigtail catheter discontinued on 06/11/22 Blood cultures pending Wound cultures staph species Continue Mira Amador for now Appreciate pulmonary input Pain control Continue supplemental oxygen as needed Plan for repeat chest x-ray tomorrow May May need 2-week course of antibiotic therapy with repeat imaging (3) Pericardial effusion: Plan: H/O Pericardial effusion Substernal scar and patient reports having fluid drained about 8 years ago (4) HIV (human immunodeficiency virus infection): Plan: Diagnosed HIV-positive 9 or 10 years ago Continue Biktarvy (5) Depression: Plan: Continue doxepin Plan DVT Px: SCDs for now CODE STATUS: Full code Admission and Anticipated Discharge Date Admission Date: June 07, 2022 Subjective Patient is seen and examined at bedside Patient had removal of pigtail catheter today Repeat imaging study showed no reaccumulation of pneumothorax Pleuritic pain much improved Denies any dyspnea, dizziness, nausea, abdominal pain No other complaints Saturating well on 2 L supplemental oxygen Review of Systems Review of Systems: All systems reviewed & are unremarkable except as noted in Subjective Physical Exam Physical Exam: Physical Exam: Vitals signs as noted above General Appearance:Moderately built and nourished, no apparent distress Head: normocephalic, Atraumatic Eyes: normal inspection, EOMI Neck: supple, Trachea midline Respiratory/Chest: R decreased breath sounds, CTA, No accessory muscle use Cardiovascular: S1, S2, No murmur Abdomen/GI:Soft, Non tender, Bowel sounds present Extremities/Musculoskeletal:normal inspection, no edema Neurologic/Psych:AAOX3, grossly no focal neurological deficits Skin: normal color, warm Results & Data Results & Data ([facility]) Vital Signs (Past 12 Hours) Vital Signs Temp Pulse Pulse Resp BP Pulse Ox O2 Del Method 06/11/22 16:26 75 06/11/22 15:11 36.9 C 72 20 131/74 94 Nasal Cannula 06/11/22 11:39 37.6 C H 79 20 122/74 95 Nasal Cannula 06/11/22 10:08 Nasal Cannula 06/11/22 10:07 82 06/11/22 07:07 36.9 C 79 18 128/73 95 Oxymask O2 Flow Rate 06/11/22 16:26 06/11/22 15:11 2 06/11/22 11:39 2 06/11/22 10:08 2 06/11/22 10:07 06/11/22 07:07 4 Laboratory Results Short CBC 06/11/22 Range/Units 08:02 WBC 15.09 H (4.8-10.8) K/ul Hgb 14.6 (14.0-18.0) g/dl Hct 42.6 (40.1-51.0) % Plt Count 189 (130-400) K/uL BMP 06/11/22 08:02 Sodium 133 L Potassium 4.2 Chloride 101 Carbon Dioxide 27 BUN 20 Creatinine 1.31 Glucose 114 H Calcium 8.7
[2022-06-12] MEDS: HYDROmorphone INJ 1 MG/ML SYRINGE IV PRN ×2 (01:03→08:19)
[2022-06-12] MEDS: VANCOMYCIN HCL 1,000 MG in SODIUM CHLORIDE 0.9% 250 ML IV SCH (01:03)
[2022-06-12] MEDS ORDERED: VANCOMYCIN LEVEL ONE (04:44)
[2022-06-12] MEDS: PIPERACILLIN/TAZOBACTAM 3.375 GM in DEXTROSE 5% 100 ML IV SCH (05:31)
[2022-06-12] MEDS: oxyCODONE/ACETAMINOPHEN 5mg/325mg TAB PO PRN (05:36)
[2022-06-12 05:39] LABS: Hematocrit (blood only) 39.4 % (40.1-51.0); Mean Corpuscular Hemoglobin 32.3 pg (25.0-34.0); Mean Corpuscular Hgb Conc 35.5 g/dL (32.0-36.0); Mean Corpuscular Volume 90.8 fL (80.0-100.0); Mean Platelet Volume 10.6 fL (9.4-12.4); Platelet Count 193 K/uL (130-400); RDW Coefficient of Variation 12.1 % (11.5-14.5); RDW Standard Deviation 40.6 fL (36.4-46.3); Red Blood Count 4.34 M/uL (4.63-6.08); White Blood Count 12.21 K/ul (4.8-10.8)
[2022-06-12 06:02] LABS: BUN Creatinine Ratio 11.5 (10-20); Calcium 8.6 mg/dl (8.5-10.1); Creatinine Clr Calc Pharmacy 87.1 ml/min; Est GFR (African American) 73.7 ml/min; Est GFR (Non-African American) 63.6 ml/min; Potassium 4.3 mmol/L (3.5-5.1)
--- NOTE | 2022-06-12 08:26 | Pulmonology Progress Note ---
Date of Service June 12, 2022 Assessment & Plan (1) Tension pneumothorax: Plan: Impression: 51-year-old male presenting with spontaneous pneumothorax and extensive emphysematous bulla. His chest tube may have been intraparenchymal and he developed a chest tube insertion site infection with staff aureus, methicillin sensitive. He may have a component of bullitis as well. Recommendations; 1. Secondary pneumothorax: Catheter removed yesterday. Chest x-ray this morning demonstrates no evidence of recurrence of pneumothorax. If the pneumothorax were to recur, the patient would likely need thoracic surgery evaluation for bullectomy and pleurodesis. 2. Soft tissue infection with probable bullitis (methicillin sensitive staph aureus): Day #3 Zosyn vancomycin. Discontinue Zosyn and Vanco and placed on Augmentin. He will need at least 2 weeks of antimicrobial therapy and a follow- up CT scan (noncontrast) in 2 to 4 weeks to ensure the infected bullae is resolving. 3. Recommend ambulating the patient with a formal two-step to assess whether or not supplemental oxygen is required. Would target oxygen saturation greater than 88% Patient peers to be doing well. He can be assessed for supplemental oxygen. Antibiotics were changed to oral. At this point time he is likely stable to transition to the hospital. Pulmonary will sign off. Feel free to contact us with questions or concerns. Discussed with patient nursing and patient. (2) Shortness of breath: Admission and Anticipated Discharge Date Admission Date: June 07, 2022 Subjective Patient seen and examined. EMR reviewed. He is off oxygen this morning. His pain is improving. His fevers and sweats are better. He is not coughing up significant phlegm. Review of Systems Review of Systems: All systems reviewed & are unremarkable except as noted in Subjective Physical Exam Constitutional: WD/WN, vitals as above Neck: trachea midline, no thyromegaly Respiratory: normal respiratory effort, lungs clear to auscultation Cardiovascular: RRR, no murmur, no edema Gastrointestinal (Abdomen): normal bowel sounds, soft, nontender, no hepatosplenomegaly Musculoskeletal: Extremities: extremities normal to inspection Skin: no rashes, warm and dry Lymphatic: no cervical lymphadenopathy Results & Data Results & Data ([facility]) Vital Signs (Past 12 Hours) Vital Signs Temp Pulse Pulse Resp BP Pulse Ox O2 Del Method 06/12/22 08:00 Nasal Cannula 06/12/22 08:00 79 06/12/22 08:03 36.6 C 71 19 133/79 89 L Room Air 06/12/22 03:41 67 06/12/22 03:24 36.9 C 66 20 144/83 H 96 Nasal Cannula 06/11/22 23:00 37.0 C 68 17 125/67 98 Room Air O2 Flow Rate 06/12/22 08:00 2 06/12/22 08:00 06/12/22 08:03 06/12/22 03:41 06/12/22 03:24 2 06/11/22 23:00 Laboratory Results 06/12/22 05:17 06/12/22 05:17 Microbiology 06/10/22 16:13 Chest Tube Drainage,Right Gram Stain - Final 06/10/22 16:13 Chest Tube Drainage,Right Wound Culture - Preliminary Staphylococcus aureus 06/10/22 16:48 Blood Aerobic Blood Culture - Preliminary No growth in Aerobic bottle after 24 hours. 06/10/22 16:48 Blood Anaerobic Blood Culture - Preliminary No growth in Anaerobic bottle after 24 hours. 06/10/22 16:37 Blood Aerobic Blood Culture - Preliminary No growth in Aerobic bottle after 24 hours. 06/10/22 16:37 Blood Anaerobic Blood Culture - Preliminary No growth in Anaerobic bottle after 24 hours. PG Care Time/CCT Total # of Minutes Spent Total Time Spent with Patient: Total time spent is greater than 50% in coordination of care (as documented) at patient's floor/unit and/or counseling patient: Coding Level of Care Code 73898 SUB INP/OBS CARE 2/35MIN Diagnoses Tension pneumothorax J93.0 Shortness of breath R06.02
--- NOTE | 2022-06-12 09:31 | XRay Report ---
XR chest 1V portable CLINICAL HISTORY: follow up ptx TECHNIQUE: Single frontal radiograph of the chest was obtained. Comparison: Comparison is made to chest radiograph 06/11/2022 FINDINGS: Interval removal of previously noted right pigtail catheter. The cardiomediastinal silhouette is norm al. Reticular interstitial opacities are seen. Bibasilar opacities have improved from prior exam. Tra ce right pleural effusion, no radiographic evidence of pneumothorax. IMPRESSION: Interval removal of pigtail catheter without radiographically evident residual pneumothorax. ACT 112: Negative or not required by law. Electronically signed by: Luke Lloyd M.D. 06/12/2022 9:30 AM
--- NOTE | 2022-06-12 12:38 | Hospitalist Progress Note ---
Date of Service June 12, 2022 Assessment & Plan (1) Tension pneumothorax: (2) Shortness of breath: Plan: Tension pneumothorax Likely secondary to ruptured bleb Hypoxia Catheter site possible infection/Infection of Bullae --Chest CT:There is a small residual right pneumothorax. Emphysema and atelectasis noted. Right chest tube in satisfactory position. Subcutaneous emphysema is seen. --Repeat CT:Streak and motion compromised examination. There is no evidence of pulmonary embolus in the main, lobar, or proximal segmental pulmonary arteries. Yesterday's right-sided chest tube has been replaced with a pigtail catheter. There is no residual pneumothorax identified. There is a small right pleural effusion. This has decreased from yesterday. There is increasing atelectasis/consolidation throughout the right lower lobe as compared to yesterday. Atelectasis at the left lung base has also increased. Cardiomegaly and emphysema. Procalcitonin 0.64 -- Pigtail catheter discontinued on 06/11/22 Blood cultures:No growth to date Wound cultures staph aureus Continue Vanco, Zosyn>>transition to Augmentin Appreciate pulmonary input Pain control 2 step: Needs 2l at rest and with activity Repeat chest x-ray today showed no recurrence of Pneumothorax If patient develops recurrence of pneumothorax, will likely need thoracic surgery evaluation for bullectomy and pleurodesis Will need 2-week course of antibiotic therapy and repeat CT chest in 2-4 weeks to ensure resolution of infected Bullae (3) Pericardial effusion: Plan: H/O Pericardial effusion Substernal scar and patient reports having fluid drained about 8 years ago (4) HIV (human immunodeficiency virus infection): Plan: Diagnosed HIV-positive 9 or 10 years ago Continue Biktarvy (5) Depression: Plan: Continue doxepin Plan DVT Px: SCDs for now CODE STATUS: Full code Admission and Anticipated Discharge Date Admission Date: June 07, 2022 Subjective Patient is seen and examined at bedside Pleuritic pain is improving Denies any dyspnea Repeat CXR showed no recurrence of Pneumothorax No other complaints Had 2 step earlier today Review of Systems Review of Systems: All systems reviewed & are unremarkable except as noted in Subjective Physical Exam Physical Exam: Physical Exam: Vitals signs as noted above General Appearance:Moderately built and nourished, no apparent distress Head: normocephalic, Atraumatic Eyes: normal inspection, EOMI Neck: supple, Trachea midline Respiratory/Chest: R decreased breath sounds, CTA, No accessory muscle use Cardiovascular: S1, S2, No murmur Abdomen/GI:Soft, Non tender, Bowel sounds present Extremities/Musculoskeletal:normal inspection, no edema Neurologic/Psych:AAOX3, grossly no focal neurological deficits Skin: normal color, warm Results & Data Results & Data ([facility]) Vital Signs (Past 12 Hours) Vital Signs Temp Pulse Pulse Pulse Pulse Pulse Pulse 06/12/22 11:37 37.0 C 73 06/12/22 10:16 76 87 77 77 06/12/22 08:00 06/12/22 08:00 79 06/12/22 08:03 36.6 C 71 06/12/22 03:41 67 06/12/22 03:24 36.9 C 66 Resp Resp Resp Resp Resp BP Pulse Ox 06/12/22 11:37 19 128/71 91 06/12/22 10:16 16 20 16 16 06/12/22 08:00 06/12/22 08:00 06/12/22 08:03 19 133/79 89 L 06/12/22 03:41 06/12/22 03:24 20 144/83 H 96 Pulse Ox Pulse Ox Pulse Ox Pulse Ox O2 Del Method O2 Flow Rate O2 Flow Rate 06/12/22 11:37 Nasal Cannula 2.0 06/12/22 10:16 92 91 96 87 L 2 06/12/22 08:00 Nasal Cannula 2 06/12/22 08:00 06/12/22 08:03 Room Air 06/12/22 03:41 06/12/22 03:24 Nasal Cannula 2 O2 Flow Rate O2 Flow Rate 06/12/22 11:37 06/12/22 10:16 2 2 06/12/22 08:00 06/12/22 08:00 06/12/22 08:03 06/12/22 03:41 06/12/22 03:24 Laboratory Results Short CBC 06/12/22 Range/Units 05:17 WBC 12.21 H (4.8-10.8) K/ul Hgb 14.0 (14.0-18.0) g/dl Hct 39.4 L (40.1-51.0) % Plt Count 193 (130-400) K/uL BMP 06/12/22 05:17 Sodium 134 L Potassium 4.3 Chloride 103 Carbon Dioxide 27 BUN 15 Creatinine 1.30 Glucose 91 Calcium 8.6
--- NOTE | 2022-06-12 12:51 | Discharge Summary ---
Date of Service June 12, 2022 Admission HPI Per Admitting Provider Mr. Guerrero is a 51-year-old incarcerated -[place] male that presented to the [facility] today after experiencing worsening shortness of breath. He reports that he was at the [employer] working out and tossing a weighted medicine ball when he started to note pain in his right chest wall that occurred yesterday. Patient reports shortness of breath at rest and exertion starting today even when making his bed. Chest x-ray revealed large right pneumothorax with mild left mediastinal shift suggesting a tension pneumothorax. Dry suction -20 cm chest tube was placed in the right chest wall in the ED with relief of his shortness of breath. Additional past medical history includes HIV positive (on Biktarvy) for the last 9 to 10 years, depression and pericardial effusion status post Pericardiocentesis and pericardial drain thereafter. 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 Patient reports being a smoker and quitting 3 years ago; reports vaping occasionally. Upon examination, patient is AAO x4 and able to have full conversation without dyspnea. Patient reports right-sided insertional pain. Patient denies headache, dizziness, visual changes, other chest pain, palpitations, abdominal pain, nausea, vomiting, diarrhea, recent falls or trauma. Patient reportedly denies any trauma or chest blows from other inmates. Initial troponin 13.6 will trend x1 but do not suspect ACS contribution to symptoms. Patient will be admitted for further evaluation, consultation, and management. Please see A/P for further details. Admission Exam Per Admitting Provider Physical Exam Physical Exam: Neuro: AAOx4, PERRLA, no aphagia, memory changes, CNII-XII grossly intact HEENT: head normocephalic, moist mucus membranes CV: S1/S2, (-) M/G/R, (-) edema, cap refill < 3 seconds Resp: Lungs CTA in left painting. no air movement on right sideOn 2LNC GI: Abdomen S/NT/ND, Ax4 bowel sounds, (-) CVA tenderness Musculoskeletal: 5/5 B/L UE strength, 5/5 B/L LE strength. No gait disturbance Skin: (-) rashes , (-) erythema. Psych: euthymic mood Principal Diagnosis Tension pneumothorax Hypoxia Catheter site possible infection/Infection of Bullae Discharge Data Allergies Allergy/AdvReac Type Severity Reaction Status Date / Time No Known Drug Allergies Allergy Verified 06/10/22 10:17 Consultations 06/07/22 18:51 ED Decision to Admit Stat 06/08/22 08:00 Consult Pulmonology Routine Procedures Performed Laboratory Results WBC 12.21 K/ul (4.8-10.8) H 06/12/22 05:17 RBC 4.34 M/uL (4.63-6.08) L 06/12/22 05:17 Hgb 14.0 g/dl (14.0-18.0) 06/12/22 05:17 Hct 39.4 % (40.1-51.0) L 06/12/22 05:17 MCV 90.8 fL (80.0-100.0) 06/12/22 05:17 MCH 32.3 pg (25.0-34.0) 06/12/22 05:17 MCHC 35.5 g/dL (32.0-36.0) 06/12/22 05:17 RDW Std Deviation 40.6 fL (36.4-46.3) 06/12/22 05:17 RDW Coeff of Lindsey 12.1 % (11.5-14.5) 06/12/22 05:17 Plt Count 193 K/uL (130-400) 06/12/22 05:17 MPV 10.6 fL (9.4-12.4) 06/12/22 05:17 Immature Gran % (Auto) 0.8 % 06/11/22 08:02 Neut % (Auto) 76.0 % 06/11/22 08:02 Lymph % (Auto) 14.9 % 06/11/22 08:02 Randolph % (Auto) 7.1 % 06/11/22 08:02 Eos % (Auto) 1.1 % 06/11/22 08:02 Baso % (Auto) 0.1 % 06/11/22 08:02 Neut # (Auto) 11.47 K/uL (1.4-6.5) H 06/11/22 08:02 Lymph # (Auto) 2.25 K/uL (1.2-3.4) 06/11/22 08:02 Randolph # (Auto) 1.07 K/uL (0.24-0.82) H 06/11/22 08:02 Eos # (Auto) 0.16 K/uL (0-0.50) 06/11/22 08:02 Baso # (Auto) 0.02 K/uL (0-0.2) 06/11/22 08:02 Immature Gran # (Auto) 0.12 K/uL (0.00-0.02) H 06/11/22 08:02 PT 10.5 Seconds (9.0-12.0) 06/07/22 16:41 INR 1.0 (0.9-1.1) 06/07/22 16:41 APTT 25.1 Seconds (21.0-31.0) 06/07/22 16:41 PTT Ratio 0.9 06/07/22 16:41 ABG pH 7.43 (7.35-7.45) 06/10/22 19:51 ABG pCO2 39 mmHg (35-46) 06/10/22 19:51 ABG pO2 84 mmHg (80-95) 06/10/22 19:51 ABG HCO3 26 mmol/L (19-24) H 06/10/22 19:51 ABG O2 Saturation 97.8 % (90-95) H 06/10/22 19:51 ABG Base Excess 1.5 mEq/L (-9-1.8) 06/10/22 19:51 Alexander Test pos (Pos) 06/10/22 19:51 Oxygen Given 6L 06/10/22 19:51 Sodium 134 mmol/L (136-145) L 06/12/22 05:17 Potassium 4.3 mmol/L (3.5-5.1) 06/12/22 05:17 Chloride 103 mmol/L (98-107) 06/12/22 05:17 Carbon Dioxide 27 mmol/L (21-32) 06/12/22 05:17 Anion Gap 4 (3-11) 06/12/22 05:17 BUN 15 mg/dl (6-23) 06/12/22 05:17 Creatinine 1.30 mg/dl (0.6-1.4) 06/12/22 05:17 Est Cr Clr Drug Dosing 87.1 ml/min 06/12/22 05:17 Est GFR ( Amer) 73.7 ml/min 06/12/22 05:17 Est GFR (Non-Af Amer) 63.6 ml/min 06/12/22 05:17 BUN/Creatinine Ratio 11.5 (10-20) 06/12/22 05:17 Glucose 91 mg/dl (70-99(Fasting)) 06/12/22 05:17 Calcium 8.6 mg/dl (8.5-10.1) 06/12/22 05:17 Phosphorus 4.2 mg/dl (2.5-4.9) 06/08/22 06:09 Magnesium 2.0 mg/dl (1.7-2.4) 06/10/22 19:51 Total Bilirubin 0.4 mg/dl (0.2-1.0) 06/07/22 16:41 AST 32 U/L (13-39) 06/07/22 16:41 ALT 41 U/L (7-52) 06/07/22 16:41 Alkaline Phosphatase 110 U/L (34-104) H 06/07/22 16:41 Troponin I High Sens 13.6 pg/ml (0-20) 06/07/22 16:41 Total Protein 9.1 gm/dl (6.0-8.3) H 06/07/22 16:41 Albumin 4.8 gm/dl (3.4-5.0) 06/07/22 16:41 Globulin 4.3 gm/dl (2.5-4.0) H 06/07/22 16:41 Albumin/Globulin Ratio 1.1 (0.9-2) 06/07/22 16:41 Procalcitonin 0.64 ng/ml (0-0.5) H 06/10/22 16:37 Urine Color Yellow 06/07/22 Unknown Urine Appearance Clear (Clear) 06/07/22 Unknown Urine pH 6.5 (4.5-7.5) 06/07/22 Unknown Ur Specific [place] 1.025 (1.000-1.030) 06/07/22 Unknown Urine Protein Negative (Negative) 06/07/22 Unknown Urine Glucose (UA) Negative (Negative) 06/07/22 Unknown Urine Ketones Trace (Negative) H 06/07/22 Unknown Urine Blood Negative (Negative) 06/07/22 Unknown Urine Nitrite Negative (Negative) 06/07/22 Unknown Urine Bilirubin Negative (Negative) 06/07/22 Unknown Urine Urobilinogen Negative (Negative) 06/07/22 Unknown Ur Leukocyte Esterase Negative (Negative) 06/07/22 Unknown Random Vancomycin 10.7 mcg/ml (10-20) 06/12/22 05:17 SARS-CoV-2, RNA, NAAT NEGATIVE (NEGATIVE) 06/07/22 18:[address] 06/10/22 14:27 CT SCAN OF THE CHEST WITHOUT IV CONTRAST CLINICAL HISTORY: Right pneumothorax. Chest tube. COMPARISON STUDY: Chest x-ray dated 06/10/2022. Chest CT dated 06/08/2022. TECHNIQUE: CT scan of the thorax was performed from the thoracic inlet to the upper abdomen. Images are reviewed in the axial, sagittal, and coronal planes. IV contrast was not administered for this examination as per the referring clinician. A dose lowering technique was utilized adhering to the principles of ALARA. The examination is degraded by motion artifact. CT DOSE: 751.15 mGy.cm FINDINGS: Thyroid: Imaged portions of the thyroid gland are normal in size and attenuation. Thoracic aorta: The thoracic aorta is normal in caliber and demonstrates bovine variant arch anatomy. Heart: The heart is normal in size and without pericardial effusion. Lungs and pleural spaces: There is advanced emphysema with large apical bullae. A right-sided chest tube enters between the right lateral 5th and 6th ribs. Although difficult to definitively localize by CT, this appears to extend through the right upper lobe parenchyma and terminates within a large right uppe r lobe. There is near fluid level within the bladder and a small right pleural effusion with right basilar consolidation.. There is a moderate persistent right anterior and basilar pneumothorax. Postsurgical changes in the right lung base. There is left basilar scarring/atelectasis. The left lung parenchyma appears clear Mediastinum: There is no mediastinal lymphadenopathy. Karen: Not well assessed without IV contrast. Axillae: There is no axillary lymphadenopathy. Upper abdomen: Partially visualized upper abdominal viscera is within normal limits. Skeletal structures: No lytic or blastic bony lesions are seen. Soft tissues: Fluid, edema, and subcutaneous emphysema are present within the right chest wall. IMPRESSION: 1. A right-sided chest tube is in place as above. Although difficult to definitively localize by CT, this appears to extend through the right upper lobe lung parenchyma and terminate within a large right upper lobe bleb. 2. There is an air-fluid level within this bleb and a small right pleural effusion with dependent consolidation. The pleural effusion has increased from 06/08/2022. 3. There is a moderate residual anterior/basilar right pneumothorax. 4. Additional findings as above. ACT 112: Negative or not required by law. Electronically signed by: Mina Barlow M.D. 06/10/2022 3:37 PM Chest CTA 06/11/22 02:13 CT ANGIOGRAM OF THE CHEST CLINICAL HISTORY: Hypoxia. COMPARISON STUDY: Chest CT dated 06/10/2022. Chest x-ray dated 06/10/2022. TECHNIQUE: Following the IV administration of 108 cc of Optiray 320, CT angiogram of the chest was performed from the upper abdomen to the thoracic inlet utilizing the pulmonary embolus protocol. Images are reviewed in the axial, sagittal, and coronal planes. 3-D MIPS images are created and assessed. IV contrast was administered without complication. A dose lowering technique was utilized adhering to the principles of ALARA. CT DOSE: 948.77 mGy.cm FINDINGS: Thyroid: Imaged portions of the thyroid gland are normal in size and attenuation. Thoracic aorta: The thoracic aorta is normal in caliber and demonstrates the examination is degraded by motion artifact, as well as by streak artifact from the right arm which could not be elevated above the chest. Bovine variant Arch anatomy. No dissection is seen. Pulmonary vasculature: The pulmonary trunk is normal in caliber. There are no filling defects identified in main, lobar, or proximal segmental pulmonary branches to suggest pulmonary embolus. Evaluation of the distal segmental and subsegmental branches is degraded by streak and motion artifact. Heart: The heart is normal in size and without pericardial effusion. Lungs and pleural spaces: There is advanced emphysema with large apical bullae. The right-sided chest tube seen yesterday has been removed and a pigtail catheter has been placed at the right lung base. This enters laterally between the 7th and 8th ribs. No significant residual right-sided pneumothorax is identified. An air-fluid level is again seen within a large right upper lobe bleb. There is a small right pleural effusion with dense right basilar consolidation. The pleural effusion has modestly decreased in size from previous. Atelectasis/consolidation throughout the right lower lobe has increased. There is segmental atelectasis at the left lung base. Mediastinum: There is no mediastinal lymphadenopathy. Karen: Clear. Axillae: There is no axillary lymphadenopathy. Upper abdomen: There is a small hiatal hernia. Partially visualized upper abdominal viscera is otherwise within normal limits. Skeletal structures: No lytic or blastic bony lesions are seen. Soft tissues: Fluid, edema, and subcutaneous emphysema are present within the right chest wall. IMPRESSION: 1. Streak and motion compromised examination. 2. There is no evidence of pulmonary embolus in the main, lobar, or proximal segmental pulmonary arteries. 3. Yesterday's right-sided chest tube has been replaced with a pigtail catheter. There is no residual pneumothorax identified. 4. There is a small right pleural effusion. This has decreased from yesterday. 5. There is increasing atelectasis/consolidation throughout the right lower lobe as compared to yesterday. 6. Atelectasis at the left lung base has also increased. 7. Cardiomegaly and emphysema. 8. Additional findings as above. ACT 112: Negative or not required by law. Electronically signed by: Mina Barlow M.D. 06/11/2022 10:11 AM Chest X-Ray 06/12/22 07:00 XR chest 1V portable CLINICAL HISTORY: follow up ptx TECHNIQUE: Single frontal radiograph of the chest was obtained. Comparison: Comparison is made to chest radiograph 06/11/2022 FINDINGS: Interval removal of previously noted right pigtail catheter. The cardiomediastinal silhouette is normal. Reticular interstitial opacities are seen. Bibasilar opacities have improved from prior exam. Trace right pleural effusion, no radiographic evidence of pneumothorax. IMPRESSION: Interval removal of pigtail catheter without radiographically evident residual pneumothorax. ACT 112: Negative or not required by law. Electronically signed by: Luke Lloyd M.D. 06/12/2022 9:30 AM Ordered Studies 06/08/22 08:42 CT chest diagnostic wo con Routine 06/10/22 14:27 CT chest diagnostic wo con Stat 06/11/22 02:13 CT angio chest PE protocol Stat Hospital Course (1) Tension pneumothorax: (2) Shortness of breath: Tension pneumothorax Likely secondary to ruptured bleb Hypoxia Catheter site possible infection/Infection of Bullae --Chest CT:There is a small residual right pneumothorax. Emphysema and atelectasis noted. Right chest tube in satisfactory position. Subcutaneous emphysema is seen. --Repeat CT:Streak and motion compromised examination. There is no evidence of pulmonary embolus in the main, lobar, or proximal segmental pulmonary arteries. Yesterday's right-sided chest tube has been replaced with a pigtail catheter. There is no residual pneumothorax identified. There is a small right pleural effusion. This has decreased from yesterday. There is increasing atelectasis/consolidation throughout the right lower lobe as compared to y esterday. Atelectasis at the left lung base has also increased. Cardiomegaly and emphysema. Procalcitonin 0.64 -- Pigtail catheter discontinued on 06/11/22 Blood cultures:No growth to date Wound cultures staph aureus Continue Vanco, Zosyn>>transition to Augmentin Appreciate pulmonary input Pain control 2 step: Needs 2l at rest and with activity Repeat chest x-ray today showed no recurrence of Pneumothorax If patient develops recurrence of pneumothorax, will likely need thoracic surgery evaluation for bullectomy and pleurodesis Will need 2-week course of antibiotic therapy and repeat CT chest in 2-4 weeks to ensure resolution of infected Bullae (3) Pericardial effusion: H/O Pericardial effusion Substernal scar and patient reports having fluid drained about 8 years ago (4) HIV (human immunodeficiency virus infection): Diagnosed HIV-positive 9 or 10 years ago Continue Biktarvy (5) Depression: Continue doxepin Plan DVT Px: SCDs for now CODE STATUS: Full code Total Time Total Time Spent Total Time Spent (In Minutes): 54 minutes Discharge Plan Discharge Items [facility]position[facility] Reason For Visit: SHORTNESS OF BREATH Discharge Diagnosis: Tension pneumothorax Hypoxia Catheter site possible infection/Infection of Bullae Activity: Per Instructions section Exercise/Sports: Wait until after follow-up appointment Non-emergency contact: Primary Care Provider and Tool Designer Apprentice Call non-emergency contact if: you have any medication questions, your symptoms worsen, your pain is concerning for you and you have a fever Follow-up/Referrals: Barb MEZA [Primary Care Provider] - Diet: Heart Healthy Addtl Attending Provider Instructions: Follow-up with your physician at correctional facility in 1 week Follow-up with your signal constructor in 2 to [address] chest as recommended. --Complete antibiotic course Augmentin for 2 weeks as prescribed. -- Use supplemental oxygen 2 L at rest and with activity as advised. Seek immediate medical attention if your symptoms reoccur or worsen Please take all medications as instructed on discharge list below. Please call if you have any questions or problems. You can reach a [facility] hospitalist on duty at [facility] 24 hours a day by calling [phone] Pending Studies at Discharge: Yes Studies:: Blood Cultures Stand-Alone Forms: My [facility] Skilled Items Patient informed of condition?: Yes Discharge Level of Care: Other Communicable Disease: No Discharge Prognosis: Stable Lines: None Urinary Catheter: No Medications and DC Order Prescriptions: New amoxicillin-pot clavulanate 875-125 mg Tablet 1 tab PO BIDM Qty: 14 0RF oxycodone-acetaminophen [Percocet] 5-325 mg Tablet 1 tab PO Q6H PRNQty: 0 0RF Continued doxepin 10 mg Capsule 10 mg PO HS Geritol Complete 16 mg iron- 0.38 mg Tablet 1 tab PO DAILY Biktarvy 30-120-15 mg Tablet 1 tab PO DAILY Rx Instructions: STRENGTH NOT LISTED ON MED LIST Discharge Orders: Discharge Order (Routine); Ordered 06/12/22 Ordered By: Oscar Davidson Admission Data Admit Date/Time: 06/07/22 18:55 Attending Provider: Oscar Davidson Admit Provider: Alisha Gonsalez Primary Care Provider: Barb MEZA Other Providers: Alisha Gonsalez ; Tab Fontaine
[2022-06-12] MEDS ORDERED: AMOXICILLIN/CLAVULANATE 875 MG TAB PO SCH (17:00)
== END 2022-06-12 15:19 | DRG 200 ==
LOC: ED 15:51 → SUATTDRO 18:55 → 2S 18:55

== ENCOUNTER 2022-09-13 16:56 | Inpatient (IN) ==
--- NOTE | 2022-09-13 17:30 | XRay Report ---
XR chest 1V portable HISTORY: 51 years-old Male Dyspnea acute shortness of breath COMPARISON: 06/12/2022 TECHNIQUE: AP view of the chest FINDINGS: Cardiac silhouette is enlarged. Chronic interstitial coarsening of the left lung. There is a large ri ght-sided pneumothorax with partial collapse of the right lung. Pleural separation measures up to angelina roximately 5 mm the right lung base. Mild leftward midline shift. Degenerative changes of the shoulde rs and spine. IMPRESSION: Large right-sided pneumothorax with partial collapse of the right lung. There is mild lef tward midline shift concerning for developing tension component. This was made as a call report. ACT 112: Negative or not required by law. The above report was generated using voice recognition software. It may contain grammatical, syntax o r spelling errors. Electronically signed by: Brandon Kennedy M.D. 09/13/2022 5:28 PM
[2022-09-13 17:39] LABS: HCO3 VBG 31 mmol/L; Oxygen Saturation VBG < 60.0 %; PCO2 VBG 49 mmHg (38-50); PO2 VBG 38 mmHg; pH VBG 7.41 (7.36-7.41)
[2022-09-13 18:05] LABS: Basophils # (auto) 0.02 K/uL (0-0.2); Basophils % (auto) 0.2 %; Eosinophils # (auto) 0.22 K/uL (0-0.50); Eosinophils % (auto) 2.2 %; Hematocrit (blood only) 50.9 % (42.0-52.0); Hemoglobin 17.6 g/dl (14.0-18.0); Immature Granulocytes # (auto) 0.03 K/uL (0.01-0.20); Immature Granulocytes % (auto) 0.3 %; Lymphocytes # (auto) 3.65 K/uL (1.2-3.4); Mean Corpuscular Hgb Conc 34.6 g/dL (32.0-36.0); Mean Corpuscular Volume 89.6 fL (80.0-100.0); Mean Platelet Volume 11.1 fL (9.4-12.4); Monocytes # (auto) 0.71 K/uL (0.11-0.59); Monocytes % (auto) 7.2 %; Neutrophils # (auto) 5.23 K/uL (1.40-6.50); Neutrophils % (auto) 53.1 %; Platelet Count 242 K/uL (130-400); RDW Coefficient of Variation 13.1 % (11.5-14.5); Red Blood Count 5.68 M/uL (4.70-6.10); White Blood Count 9.86 K/ul (4.8-10.8)
[2022-09-13 18:06] LABS: Albumin Globulin Ratio 1.3 (0.9-2); Albumin Level 4.7 gm/dl (3.4-5.0); BUN Creatinine Ratio 10.8 (10-20); Bilirubin,Total 0.5 mg/dl (0.2-1.0); Calcium 9.9 mg/dl (8.6-10.3); Creatinine Clr Calc Pharmacy 124.8 ml/min; Est GFR (Non-African American) 54.4 ml/min; Globulin 3.6 gm/dl (2.5-4.0); Potassium 4.2 mmol/L (3.5-5.1); Total Protein 8.3 gm/dl (6.0-8.3)
[2022-09-13 18:09] LABS: Troponin I High Sensitivity 8.8 pg/ml (0-20)
[2022-09-13 18:37] LABS: Partial Thromboplastin Ratio 0.9; Partial Thromboplastin Time 25.4 Seconds (21.0-31.0); Prothrombin Time 10.8 Seconds (9.0-12.0)
[2022-09-13] MEDS ORDERED: LIDOCAINE 1% LOCAL 20 ML VIAL ONE (19:38)
[2022-09-13] MEDS ORDERED: MoRPHine SULFATE 4 MG/ML 1 ML CARP\\VIAL IV PRN (20:44)
[2022-09-13] MEDS ORDERED: MoRPHine SULFATE 2 MG/ML CARP IV PRN (20:44)
[2022-09-13] MEDS ORDERED: ACETAMINOPHEN 1,000 MG/100 ML VIAL IV STA (20:45)
[2022-09-13] MEDS ORDERED: LACTATED RINGER'S 1,000 ML IV SCH (20:45)
--- NOTE | 2022-09-13 21:02 | Emergency Department Note ---
Impression & Plan Tension pneumothorax, HIV (human immunodeficiency virus infection), Recurrent spontaneous pneumothorax, CKD (chronic kidney disease) ED Provider Note NAME: SUSANNE [id number] CHELO AGE: 51 SEX: M ARRIVES VIA: Ambulance INFORMANT: Patient ED PROVIDER(S): Tone Alejandro MD CHIEF COMPLAINT: Spontaneous PTX, referred. PLAN: Disposition: Admit MEDICAL DECISION MAKING: The patient is a pleasant 51-year-old gentleman, current alf inmate at [facility] with a past medical history of HIV on Biktarvy with recent CD4 count in May within normal limits and undetectable viral load per records, history of spontaneous pneumothorax in the setting of lifting weights in May of this year who presents to the emergency department from his facility for worsening shortness of breath over the past week where he had an x-ray performed demonstrating recurrence of right-sided pneumothorax. The patient denies trauma. He reports he has been working out again where he will perform pull-ups and admits that he may hold his breath at times when exerting himself for this. He denies any recent fevers, chills, cough congestion, GI or symptoms. He denies any anticoagulation. On arrival the patient is uncomfortable but in no acute distress afebrile with stable vital signs. O2 saturation is 95% on room air with normal respiratory effort. Diminished breath sounds of the lung painting. Chest x-ray demonstrates large right-sided pneumothorax with question of possible developing tension pneumothorax however clinically the patient does not present as if these findings were in tension. Lung sounds diminished at the right lung field. There is no crepitus or tenderness palpation of the chest wall. WBC, H/H and platelets within normal limits. Chemistry without metabolic acidosis. Creatinine 1.4 similar to prior range values. High-sensitivity troponin 8.8, within normal limits. COVID-19 RNA, ELSA test was negative. Case was discussed with ICU double back operator, Dr. Poole. Appreciate recommendations and agrees the patient's pneumothorax can be managed with a pigtail at this time. Patient can be admitted to a monitored floor with capability for chest tube management. On prior admission is was recommended that the patient will need evaluation at tertiary care center for VATS however this can be reassessed during his admission as there is no immediate need for transfer at this time. Patient was consented for for chest tube/pigtail placement which was performed per procedure note. The patient tolerated the procedure well and post procedure chest x-ray demonstrates right lung reexpansion per my preliminary review. The patient did report feeling improvement with his breathing following low-wall suction and transition to intermittent low-wall suction. Case was discussed with Dr. Hoyos, [facility] hospitalist, who will evaluate the patient for admission. Triage Nursing notes reviewed and agree them. Prior/outside medical records reviewed Vital Signs: reviewed Differential diagnosis: Cardiac ischemia, aortic dissection, pulmonary embolism, pneumothorax, pneumonia, pericarditis, myocarditis, esophageal rupture, GERD, cholecystitis, pancreatitis, musculoskeletal, as well as other pathologies. ER treatment provided: See below. Diagnostics interpreted by me: ECG: Normal sinus rhythm, 78 bpm, no ectopy, no overt ST elevation or depression, QTc 417, QRS 84. Cardiac Monitoring: An order for continuous cardiac monitoring was placed and demonstrated normal sinus rhythm, 78 bpm, no ectopy. Laboratory studies: See below Imaging studies: See below Consultation(s): Dr. Poole, ICU double back operator. Dr. Hoyos, [facility] hospitalist. HPI: The patient is a pleasant 51-year-old gentleman, current alf inmate at [facility] with a past medical history of HIV on Biktarvy with recent CD4 count in May within normal limits and undetectable viral load per records, history of spontaneous pneumothorax in the setting of lifting weights in May of this year who presents to the emergency department from his facility for worsening shortness of breath over the past week where he had an x-ray performed demonstrating recurrence of right-sided pneumothorax. The patient denies trauma. He reports he has been working out again where he will perform pull-ups and ad mits that he may hold his breath at times when exerting himself for this. He denies any recent fevers, chills, cough congestion, GI or symptoms. He denies any anticoagulation. ROS: See above HPI for pertinent positives & negatives. A total of 10 systems reviewed and were otherwise negative. VITALS:See Below PHYSICAL EXAMINATION: GENERAL: Awake, alert, well-appearing, in no distress, BMI 35.3 HENT: Normocephalic, atraumatic. Oropharynx unremarkable. EYES: Normal conjunctiva. Sclera non-icteric. NECK: Supple. No nuchal rigidity. FROM. No JVD. RESPIRATORY: Diminished breath sounds of right lung field. CARDIAC: Regular rate, normal rhythm. Extremities warm and well perfused. Pulses equal. ABDOMEN: Soft, non-distended. No tenderness to palpation. No rebound or guarding. No masses. RECTAL: Deferred. MUSCULOSKELETAL: Chest examination reveals no tenderness. The back is symmetrical on inspection without obvious abnormality. There is no CVA tenderness to palpation. No joint edema. LOWER EXTREMITIES: Calves are equal size bilaterally and non-tender. No edema. No discoloration. NEURO: Normal sensorium. No sensory or motor deficits noted. SKIN: No rash or jaundice noted. ED COURSE: Procedures: Tube thoracostomy (pigtail) Indication: Pneumothorax Catheter type: Pigtail catheter, 8.5f/15cm Location: Right mid-axillary line, 4th intercostal space. Medications, Imaging and lab results reviewed. Verbal consent was obtained after the risks and benefits were explained. At this time, the risks of the procedure are less than the risks of NOT performing the procedure. The patient was placed in the supine position with slight left lateral decubitus orientation and the skin was prepped in the standard fashion with chlorhexidine and sterile drapes applied. The proper landmarks were identified with ultrasound, anesthetized with 1% lidocaine without epinephrine, and the needle was inserted through the skin in the standard fashion with contact on rib surface then over rib into intercostal space. The needle was carefully advanced and air return confirmed in syringe. The guidewire was placed uneventfully. Tract was dilated in standard fashion and pigtail catheter advanced with air return confirming appropriate position. It was sutured into position. Initially placed to low wall suction which the patient tolerated well. The patient tolerated the procedure well and there were no complications. Post procedure x-ray demonstrated right lung re-expansion. Critical Care: I have personally spent greater than 35 minutes of critical care time in the direct management of this patient. This includes bedside care, interpretation of diagnostic studies, and testing, discussion with consultants, patient, and family members, and other required patient management activities. This 35 minutes is in excess of all separately billable procedures. Tone Alejandro MD Past Med/Surg History Medical History Depression HIV (human immunodeficiency virus infection) Pericardial effusion Pericardial effusion Shortness of breath Family History Other Depression Dyslipidemia Social History Smoking Status: Former smoker Tobacco Type: Cigarettes Smoking End Date: 05/2022; Second Hand Exposure: No; Do You Dip or Chew Tobacco: No; Hx Alcohol Use: No Hx Substance Use: No Preferred Language: Serbian Communication Ability: Effective Brim Greaser Operator Required: No Beliefs That Will Affect Care: None Current Living Situation: Rehab Current Living Situation Comment: [facility] Other Information That Helps Us Care for You: No Feels Safe at Home: Yes Safety Concerns: Feels Safe At This Time Assistive Devices: None Allergies Allergies Allergy/AdvReac Type Severity Reaction Status Date / Time No Known Drug Allergies Allergy Unknown Verified 09/13/22 19:33 Home Meds Home Medications Medication Instructions Recorded Confirmed bictegravir 30 mg-emtricitabine 1 tab PO DAILY 06/07/22 09/13/22 120 mg-tenofovir alafenam 15 mg tablet (Biktarvy) multivitamin with min 1 tab PO DAILY 06/07/22 09/13/22 no.36-iron,carbonyl-FA 16 mg iron-0.38 mg tablet (Geritol Complete) albuterol sulfate 90 mcg/actuation 2 puff inhalation QID PRN 09/13/22 09/13/22 aerosol inhaler Shortness Of Breath doxepin 100 mg capsule 100 mg PO HS 09/13/22 09/13/22 Results & Data (ED) Vital Signs Vital Signs - 24 hr 09/13/22 16:59 09/13/22 17:06 09/13/22 17:05 Temperature 36.6 C Temperature Source Axillary Pulse Rate 86 85 Pulse Rate [Apical] 88 Pulse Rate from SpO2 Sensor 86 Pulse Rhythm [Apical] Pulse Strength [Apical] Respiratory Rate 21 16 21 Respiratory Effort / Characteristics Respiratory Depth Normal Respiratory Pattern Blood Pressure 147/73 H Blood Pressure [Left Arm] 147/73 H Blood Pressure Mean 97 Blood Pressure Mean [Left Arm] 97 Blood Pressure Position [Left Arm] Pulse Oximetry 95 96 96 Oxygen Delivery Method Room Air Nasal Cannula Oxygen Flow Rate 3 Sepsis Recent Fever Within 48 Hours No Sepsis New/Unexplained Change in Mental Status No Sepsis Action Taken by Nursing No Action Required 09/13/22 17:11 09/13/22 17:10 09/13/22 17:15 Temperature Temperature Source Pulse Rate 82 88 Pulse Rate [Apical] Pulse Rate from SpO2 Sensor 88 Pulse Rhythm [Apical] Pulse Strength [Apical] Respiratory Rate 20 Respiratory Effort / Characteristics Respiratory Depth Respiratory Pattern Blood Pressure 146/86 H Blood Pressure [Left Arm] Blood Pressure Mean 106 Blood Pressure Mean [Left Arm] Blood Pressure Position [Left Arm] Pulse Oximetry 95 Oxygen Delivery Method Oxygen Flow Rate Sepsis Recent Fever Within 48 Hours Sepsis New/Unexplained Change in Mental Status Sepsis Action Taken by Nursing 09/13/22 17:20 09/13/22 17:30 09/13/22 17:30 Temperature Temperature Source Pulse Rate 82 83 Pulse Rate [Apical] Pulse Rate from SpO2 Sensor 80 91 H Pulse Rhythm [Apical] Pulse Strength [Apical] Respiratory Rate 21 24 Respiratory Effort / Characteristics Respiratory Depth Respiratory Pattern Blood Pressure 146/86 H Blood Pressure [Left Arm] Blood Pressure Mean 106 Blood Pressure Mean [Left Arm] Blood Pressure Position [Left Arm] Pulse Oximetry 93 96 Oxygen Delivery Method Oxygen Flow Rate Sepsis Recent Fever Within 48 Hours Sepsis New/Unexplained Change in Mental Status Sepsis Action Taken by Nursing 09/13/22 17:40 09/13/22 17:45 09/13/22 17:45 Temperature Temperature Source Pulse Rate 86 85 Pulse Rate [Apical] Pulse Rate from SpO2 Sensor 82 86 Pulse Rhythm [Apical] Pulse Strength [Apical] Respiratory Rate 26 H 17 Respiratory Effort / Characteristics Respiratory Depth Respiratory Pattern Blood Pressure 130/92 Blood Pressure [Left Arm] Blood Pressure Mean 104 Blood Pressure Mean [Left Arm] Blood Pressure Position [Left Arm] Pulse Oximetry 96 95 100 Oxygen Delivery Method Non-rebreather Oxygen Flow Rate 15 Sepsis Recent Fever Within 48 Hours Sepsis New/Unexplained Change in Mental Status Sepsis Action Taken by Nursing 09/13/22 17:50 09/13/22 21:00 09/13/22 21:16 Temperature Temperature Source Pulse Rate 82 Pulse Rate [Apical] 60 64 Pulse Rate from SpO2 Sensor 82 Pulse Rhythm [Apical] Regular Regular Pulse Strength [Apical] Normal Normal Respiratory Rate 25 H 20 17 Respiratory Effort / Characteristics Non-Labored Spontaneous Non-Labored Spontaneous Respiratory Depth Normal Normal Respiratory Pattern Regular Regular Blood Pressure Blood Pressure [Left Arm] 188/124 H 115/74 Blood Pressure Mean Blood Pressure Mean [Left Arm] 145 87 Blood Pressure Position [Left Arm] Semi-fowlers Semi-fowlers Pulse Oximetry 96 95 94 Oxygen Delivery Method Nasal Cannula Nasal Cannula Oxygen Flow Rate 2 2 Sepsis Recent Fever Within 48 Hours Sepsis New/Unexplained Change in Mental Status Sepsis Action Taken by Nursing 09/13/22 20:54 09/13/22 22:00 09/13/22 23:06 Temperature Temperature Source Pulse Rate 72 Pulse Rate [Apical] 59 L 53 L Pulse Rate from SpO2 Sensor Pulse Rhythm [Apical] Pulse Strength [Apical] Respiratory Rate 16 20 Respiratory Effort / Characteristics Respiratory Depth Respiratory Pattern Blood Pressure Blood Pressure [Left Arm] 136/80 121/75 Blood Pressure Mean Blood Pressure Mean [Left Arm] 98 90 Blood Pressure Position [Left Arm] Pulse Oximetry 94 95 Oxygen Delivery Method Nasal Cannula Nasal Cannula Oxygen Flow Rate 2 2 Sepsis Recent Fever Within 48 Hours Sepsis New/Unexplained Change in Mental Status Sepsis Action Taken by Nursing Laboratory Data Attestation: I reviewed the patient's lab results. 09/13/22 17:13 09/13/22 17:14 Lab Results 09/13/22 09/13/22 09/13/22 Range/Units 17:12 17:13 17:13 WBC 9.86 (4.8-10.8) K/ul RBC 5.68 (4.70-6.10) M/uL Hgb 17.6 (14.0-18.0) g/dl Hct 50.9 (42.0-52.0) % MCV 89.6 (80.0-100.0) fL MCH 31.0 (25.0-34.0) pg MCHC 34.6 (32.0-36.0) g/dL RDW Std Deviation 43.0 (36.4-46.3) fL RDW Coeff of Lindsey 13.1 (11.5-14.5) % Plt Count 242 (130-400) K/uL MPV 11.1 (9.4-12.4) fL Immature Gran % (Auto) 0.3 % Neut % (Auto) 53.1 % Lymph % (Auto) 37.0 % Prentiss % (Auto) 7.2 % Eos % (Auto) 2.2 % Baso % (Auto) 0.2 % Neut # (Auto) 5.23 (1.40-6.50) K/uL Lymph # (Auto) 3.65 H (1.2-3.4) K/uL Prentiss # (Auto) 0.71 H (0.11-0.59) K/uL Eos # (Auto) 0.22 (0-0.50) K/uL Baso # (Auto) 0.02 (0-0.2) K/uL Immature Gran # (Auto) 0.03 (0.01-0.20) K/uL PT 10.8 (9.0-12.0) Seconds INR 1.0 (0.9-1.1) APTT 25.4 (21.0-31.0) Seconds PTT Ratio 0.9 VBG pH 7.41 (7.36-7.41) VBG pCO2 49 (38-50) mmHg VBG pO2 38 mmHg VBG HCO3 31 mmol/L VBG O2 Saturation < 60.0 % VBG Base Excess 5.0 mEq/L Sodium (136-145) mmol/L Potassium (3.5-5.1) mmol/L Chloride (98-107) mmol/L Carbon Dioxide (21-32) mmol/L Anion Gap (3-11) BUN (6-23) mg/dl Creatinine (0.6-1.4) mg/dl Est Cr Clr Drug Dosing ml/min Est GFR ( Amer) ml/min Est GFR (Non-Af Amer) ml/min BUN/Creatinine Ratio (10-20) Glucose (70-99(Fasting)) mg/dl Calcium (8.6-10.3) mg/dl Total Bilirubin (0.2-1.0) mg/dl AST (13-39) U/L ALT (7-52) U/L Alkaline Phosphatase (34-104) U/L Troponin I High Sens (0-20) pg/ml Total Protein (6.0-8.3) gm/dl Albumin (3.4-5.0) gm/dl Globulin (2.5-4.0) gm/dl Albumin/Globulin Ratio (0.9-2) SARS-CoV-2, RNA, NAAT (NEGATIVE) 09/13/22 09/13/22 Range/Units 17:13 17:14 WBC (4.8-10.8) K/ul RBC (4.70-6.10) M/uL Hgb (14.0-18.0) g/dl Hct (42.0-52.0) % MCV (80.0-100.0) fL MCH (25.0-34.0) pg MCHC (32.0-36.0) g/dL RDW Std Deviation (36.4-46.3) fL RDW Coeff of Lindsey (11.5-14.5) % Plt Count (130-400) K/uL MPV (9.4-12.4) fL Immature Gran % (Auto) % Neut % (Auto) % Lymph % (Auto) % Prentiss % (Auto) % Eos % (Auto) % Baso % (Auto) % Neut # (Auto) (1.40-6.50) K/uL Lymph # (Auto) (1.2-3.4) K/uL Prentiss # (Auto) (0.11-0.59) K/uL Eos # (Auto) (0-0.50) K/uL Baso # (Auto) (0-0.2) K/uL Immature Gran # (Auto) (0.01-0.20) K/uL PT (9.0-12.0) Seconds INR (0.9-1.1) APTT (21.0-31.0) Seconds PTT Ratio VBG pH (7.36-7.41) VBG pCO2 (38-50) mmHg VBG pO2 mmHg VBG HCO3 mmol/L VBG O2 Saturation % VBG Base Excess mEq/L Sodium 138 (136-145) mmol/L Potassium 4.2 (3.5-5.1) mmol/L Chloride 102 (98-107) mmol/L Carbon Dioxide 28 (21-32) mmol/L Anion Gap 8 (3-11) BUN 16 (6-23) mg/dl Creatinine 1.48 H (0.6-1.4) mg/dl Est Cr Clr Drug Dosing 124.8 ml/min Est GFR ( Amer) 63.0 ml/min Est GFR (Non-Af Amer) 54.4 ml/min BUN/Creatinine Ratio 10.8 (10-20) Glucose 75 (70-99(Fasting)) mg/dl Calcium 9.9 (8.6-10.3) mg/dl Total Bilirubin 0.5 (0.2-1.0) mg/dl AST 22 (13-39) U/L ALT 27 (7-52) U/L Alkaline Phosphatase 110 H (34-104) U/L Troponin I High Sens 8.8 (0-20) pg/ml Total Protein 8.3 (6.0-8.3) gm/dl Albumin 4.7 (3.4-5.0) gm/dl Globulin 3.6 (2.5-4.0) gm/dl Albumin/Globulin Ratio 1.3 (0.9-2) SARS-CoV-2, RNA, NAAT NEGATIVE (NEGATIVE) Administered Medications Doxepin HCl (Doxepin Hcl 50 Mg Capsule) 100 mg PO HS VEENA Stop: 10/14/22 00:25 Last Admin: 09/14/22 01:18 Dose: 100 mg Documented By: GAURAV Sodium Chloride (Nss 1000ml) 1,000 mls @ 80 mls/hr IV .[id number] VEENA Stop: 09/14/22 12:55 Last Admin: 09/14/22 01:18 Dose: 80 mls/hr Documented By: GAURAV Oxycodone HCl (Oxycodone Hcl Ir 5 Mg Tab (Immediate Release)) 5 mg PO Q6H PRN PRN Reason: Moderate Pain (Scale 4, 5, 6) Stop: 09/28/22 00:25 Last Admin: 09/14/22 01:19 Dose: 5 mg Documented By: GAURAV Discontinued Medications Lactated Ringer's (Lr) 1,000 mls @ 125 mls/hr IV .Q8H VEENA Stop: 10/13/22 20:44 Last Infusion: 09/14/22 00:30 Dose: 0 mls/hr Documented By: Infusion: 09/14/22 00:29 Dose: 0 mls/hr Documented By: Admin: 09/13/22 20:57 Dose: 125 mls/hr Documented By: CARIN Acetaminophen (Ofirmev) 1,000 mg in 100 mls @ 400 mls/hr IV NOW STA Stop: 09/13/22 20:59 Last Infusion: 09/13/22 21:20 Dose: 0 mls/hr Documented By: Admin: 09/13/22 21:00 Dose: 400 mls/hr Documented By: CARIN Lidocaine HCl (Lidocaine 1% Local 20 Ml Vial) Confirm Administered Dose 1 ml .ROUTE .STK-MED ONE Stop: 09/13/22 19:39 Last Admin: 09/13/22 19:51 Dose: 1 ml Documented By: CARIN Morphine Sulfate (Morphine Sulfate 4 Mg/Ml 1 Ml Carp\Vial) 4 mg IV Q2H PRN PRN Reason: Severe Pain (Rating 7,8,9,10) Stop: 09/27/22 20:43 Last Admin: 09/13/22 21:33 Dose: 4 mg Documented By: CARIN Imaging Data Radiologist's Impression: Chest X-Ray 09/13/22 16:58 XR chest 1V portable HISTORY: 51 years-old Male Dyspnea acute shortness of breath COMPARISON: 06/12/2022 TECHNIQUE: AP view of the chest FINDINGS: Cardiac silhouette is enlarged. Chronic interstitial coarsening of the left lung. There is a large right-sided pneumothorax with partial collapse of the right lung. Pleural separation measures up to approximately 5 mm the right lung base. Mild leftward midline shift. Degenerative changes of the shoulders and spine. IMPRESSION: Large right-sided pneumothorax with partial collapse of the right lung. There is mild leftward midline shift concerning for developing tension component. This was made as a call report. ACT 112: Negative or not required by law. The above report was generated using voice recognition software. It may contain grammatical, syntax or spelling errors. Electronically signed by: Brandon Kennedy M.D. 09/13/2022 5:28 PM Discharge Plan Visit Data Chief Complaint: Respiratory Problems Stated Complaint: RESPIRATORY PROBLEMS ED Provider: Tone Alejandro Discharge Problem: Tension pneumothorax, HIV (human immunodeficiency virus infection), Recurrent spontaneous pneumothorax, CKD (chronic kidney disease) Patient Disposition: Admitted As Inpatient Discharge Instructions Interventions: ED Discharge Assessment Last Done: 09/13/22 23:52
[2022-09-14] MEDS ORDERED: ACETAMINOPHEN 325 MG TAB PO PRN (00:26)
[2022-09-14] MEDS ORDERED: NITROGLYCERIN SL 0.4 MG/TAB TAB SL PRN (00:26)
[2022-09-14] MEDS ORDERED: SODIUM CHLORIDE 0.9% 1000ML 1,000 ML IV SCH (00:26)
[2022-09-14] MEDS ORDERED: ALBUTEROL HFA 8 GM INHALER INH PRN (00:26)
[2022-09-14] MEDS ORDERED: oxyCODONE HCL IR 5 MG TAB (IMMEDIATE RELEASE) PO PRN (00:26)
[2022-09-14] MEDS: DOXEPIN HCL 50 MG CAPSULE PO SCH ×2 (01:18→21:04)
--- NOTE | 2022-09-14 02:31 | History and Physical Report ---
DATE OF ADMISSION: 09/13/2022. CHIEF COMPLAINT: Spontaneous pneumothorax. HISTORY OF PRESENT ILLNESS: This is a 51-year-old male, coming from shelter with past medical history significant for HIV, on Biktarvy, seems for the last 9-10 years, history of depression and pericardial effusion, status post pericardiocentesis and pericardial drain thereafter as per previous records. The patient was here in May with spontaneous pneumothorax after working in gym. At that time, was status post pigtail catheter. Tension pneumothorax was thought to be secondary to rupture of bleb. Pigtail catheter was discontinued 06/11/2022 prior to discharge. Now comes back in again with spontaneous pneumothorax. The patient says he was doing some exercise a couple of days ago and felt short of breath. Went to the medical x-ray done and was sent in here . Cxr showing large right pneumothorax. ER physician d/w ICU and patient is s/p pigtail catheter.The repeat x-ray looks pneumothorax is improved and the patient is saturating okay on room air, seems comfortable except for some discomfort at the pigtail catheter site.Plan to admit to tele floor and evaluated by pulmonary in the a.m. for any requirement for VATS procedure . Denies any chest pain. No shortness of breath, no cough, no fevers, no headache, no blurred visions, no earache, no runny nose, no sore throat. Appetite is okay. No nausea, no abdominal pain. Normal bowel and bladder movements. Say his HIV is under control. Takes his medications regularly. ALLERGIES: No known drug allergies. PAST MEDICAL HISTORY: As mentioned above. PAST SURGICAL HISTORY: Pericardiocentesis and chest tube and pigtail catheter placement in May of this year. MEDICATIONS: The patient is on albuterol 2 puffs inhalation q.i.d. p.r.n., Biktarvy 1 tablet p.o. daily, doxepin 100 mg p.o. daily, Geritol Complete 1 tablet p.o. daily. FAMILY HISTORY: Denies any family history. SOCIAL HISTORY: Smoker, quit smoking, last in May. Denies any alcohol use. REVIEW OF SYSTEMS: As per HPI. Rest of review of systems is negative. PHYSICAL EXAMINATION: GENERAL: The patient is of moderate build, not in acute distress. VITAL SIGNS: Temperature 36.6, pulse 53, respiratory rate 20, blood pressure 121/75, oxygen 95% on 2 liters. HEENT: Pupils equal, round and reactive to light. Oral mucosa moist. NECK: No JVD, no neck masses. CARDIOVASCULAR: S1 and S2 heard. Regular rate and rhythm. No murmur, no gallop. RESPIRATORY SYSTEM: Normal AP diameter. No accessory muscle use. No wheezing. No crackle. Status post pigtail catheter on the right side of chest. ABDOMEN: Soft, bowel sounds present, nontender, no distention. CENTRAL NERVOUS SYSTEM: Cranial nerves II-XII grossly intact, nonfocal. EXTREMITIES: No edema, no erythema. LABORATORY DATA: WBC is 9.8, hemoglobin 15.6, hematocrit 50.9, platelets 242. PT 10.8, INR 1, APTT 25.4. VBG; pH 7.4, pCO2 of 49. Sodium 138, potassium 4.2, chloride 102, bicarbonate 28, BUN 16, creatinine 1.4, serum glucose 75, calcium 9.9, total bilirubin 0.5, AST 22, ALT 27, alkaline phosphatase 110. Troponin I high sensitivity 8.8. SARS-COVID rapid test negative. IMAGING DATA: Chest x-ray, large right-sided pneumothorax with partial collapse of the right lung. There is mild leftward midline shift concerning for developing tension component. Repeat chest x-ray, s/p pigtail catheter, pneumothorax improved. EKG: Normal sinus rhythm at 78, no acute ST changes seen. ASSESSMENT AND PLAN: This is a 51-year-old male with history of tension pneumothorax, presented again with spontaneous pneumothorax . 1. Spontaneous pneumothorax, status post pigtail catheter. Currently, seems improved. Follow the repeat x-ray in the a.m. Pulmonary consult in a.m. for further recommendations. Pain control. 2. History of human immunodeficiency virus. Continue Biktarvy. 3. Depression. Continue doxepin. 4. Deep venous thrombosis prophylaxis: Heparin subcutaneously. DISPOSITION: Admit to tele floor. Expect to discharge back to shelter when stable. Level 1 full code. Job ID: [id number] MTDD
[2022-09-14 05:57] LABS: Basophils # (auto) 0.04 K/uL (0-0.2); Basophils % (auto) 0.4 %; Eosinophils # (auto) 0.26 K/uL (0-0.50); Eosinophils % (auto) 2.5 %; Hematocrit (blood only) 47.6 % (42.0-52.0); Hemoglobin 16.4 g/dl (14.0-18.0); Immature Granulocytes # (auto) 0.04 K/uL (0.01-0.20); Immature Granulocytes % (auto) 0.4 %; Lymphocytes % (auto) 32.6 %; Mean Corpuscular Hemoglobin 31.1 pg (25.0-34.0); Mean Corpuscular Hgb Conc 34.5 g/dL (32.0-36.0); Mean Corpuscular Volume 90.2 fL (80.0-100.0); Mean Platelet Volume 10.7 fL (9.4-12.4); Monocytes # (auto) 0.84 K/uL (0.11-0.59); Neutrophils # (auto) 5.86 K/uL (1.40-6.50); Neutrophils % (auto) 56.1 %; Platelet Count 226 K/uL (130-400); RDW Coefficient of Variation 13.2 % (11.5-14.5); RDW Standard Deviation 43.7 fL (36.4-46.3); Red Blood Count 5.28 M/uL (4.70-6.10); White Blood Count 10.44 K/ul (4.8-10.8)
[2022-09-14 06:06] LABS: BUN Creatinine Ratio 10.9 (10-20); Calcium 8.8 mg/dl (8.6-10.3); Est GFR (African American) 59.2 ml/min; Magnesium 1.9 mg/dl (1.7-2.4); Potassium 4.3 mmol/L (3.5-5.1)
--- NOTE | 2022-09-14 07:23 | XRay Report ---
XR chest 1V portable CLINICAL HISTORY: eval PTX s/p chest tube TECHNIQUE: Single frontal radiograph of the chest was obtained. Comparison: Comparison is made to chest radiograph 09/13/2022 FINDINGS: Interval placement of right pigtail catheter. The cardiomediastinal silhouette is normal. Previously noted right pneumothorax is resolved. Left lung airspace opacity is unchanged. IMPRESSION: Interval placement of a right chest tube. On a single view radiograph, no residual right pneumothorax is seen. ACT 112: Negative or not required by law. Electronically signed by: Luke Lloyd M.D. 09/14/2022 7:20 AM
--- NOTE | 2022-09-14 08:07 | XRay Report ---
XR chest 1V portable CLINICAL HISTORY: pneumothorax TECHNIQUE: Single frontal radiograph of the chest was obtained. Comparison: Comparison is made to chest radiograph 09/13/2022 FINDINGS: Small right pleural catheter. The cardiomediastinal silhouette is normal. The lungs are clear. No lyly dence of residual pneumothorax. There may be a trace right pleural effusion. IMPRESSION: No evidence of residual pneumothorax. Right chest tube is again seen. There may be trace right pleura l effusion. ACT 112: Negative or not required by law. Electronically signed by: Luke Lloyd M.D. 09/14/2022 8:05 AM
[2022-09-14] MEDS: HEPARIN SOD 5,000 UNIT/0.5 ML VIAL SQ SCH ×2 (08:36→21:04)
[2022-09-14] MEDS: HYDROmorphone INJ 0.5 MG/0.5 ML SYR IV PRN ×2 (08:37→16:05)
[2022-09-14] MEDS ORDERED: CEROVITE ADV FORMULA TAB PO SCH (09:00)
--- NOTE | 2022-09-14 10:04 | Pulmonary Consultation ---
Date of Consultation September 14, 2022 Assessment & Plan (1) Secondary spontaneous pneumothorax: (2) Recurrent spontaneous pneumothorax: Plan I placed the chest tube to waterseal as there is no significant air leak. Repeat chest x-ray about 2 hours. He will need definitive management of this secondary recurrent spontaneous pneumothorax due to the large blebs. He will need transferred to a tertiary center for thoracic surgery evaluation. I discussed the case with the hospitalist was made to reach out to the transfer center. Thank you for allowing us to participate in the care of this patient. We will continue to follow while he remains in house. History of Present Illness Reason for Consultation: Recurrent pneumothorax Attending Physician: Chai Luz MD History of Present Illness 51-year-old male who is a current present at [facility] with a past medical history of HIV on Biktarvy who presented due to severe chest pain and shortness of breath. He was found to have very large pneumothorax on the right small bore pigtail catheter placed by the ER staff overnight. He was lifting weights when this occurred. He had a very similar presentation back in May where he required a chest tube and was ultimately discharged. He currently denies any chest pain. No air leak noted in the [place] drainage system. He is on -20 cm water suction. He denies any fevers, chills or night sweats. Chest CTA from 06/11/2022 reviewed. He has evidence of advanced emphysema with large apical blebs. This chest x-ray from today reviewed which reveals no evidence of residual pneumothorax with chest tube in place. Allergies Allergy/AdvReac Type Severity Reaction Status Date / Time No Known Drug Allergies Allergy Unknown Verified 09/13/22 19:33 Home Medications Medication Instructions Recorded Confirmed Type bictegravir 30 mg-emtricitabine 1 tab PO DAILY 06/07/22 09/13/22 History 120 mg-tenofovir alafenam 15 mg tablet (Biktarvy) multivitamin with min 1 tab PO DAILY 06/07/22 09/13/22 History no.36-iron,carbonyl-FA 16 mg iron-0.38 mg tablet (Geritol Complete) albuterol sulfate 90 mcg/actuation 2 puff inhalation QID PRN 09/13/22 09/13/22 History aerosol inhaler Shortness Of Breath doxepin 100 mg capsule 100 mg PO HS 04/17/23 04/17/23 History Patient History Medical History (Updated 09/14/22 @ 10:02 by Ruben Bourgeois MD) Depression HIV (human immunodeficiency virus infection) Pericardial effusion Pericardial effusion Secondary spontaneous pneumothorax Shortness of breath Family History Other Depression Dyslipidemia Social History Smoking Status: Former smoker Tobacco Type: Cigarettes Smoking End Date: 05/2022; Second Hand Exposure: No; Do You Dip or Chew Tobacco: No; Hx Alcohol Use: No Hx Substance Use: No Preferred Language: Sami Communication Ability: Effective 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 Patient is in no apparent distress. Patient is well-developed. Eyes: Pupils are equal round and reactive to light. Conjunctivae are normal. Anicteric sclera. Ears nose, mouth and throat: Mallampati class 2. Normal posterior oropharynx. Uvula is midline. Neck: Trachea is midline. Visual inspection is normal. Respiratory: Clear to auscultation bilaterally. No use of accessory muscles. No significant clubbing noted. Cardiovascular: Regular rate and rhythm. No murmurs. No edema. Gastrointestinal: Normal bowel sounds, soft, nontender and nondistended. No hepatosplenomegaly noted. Musculoskeletal: No cyanosis. Patient is able to move all extremities. Strength is 5 out of 5 in the upper and lower extremities. Skin: No rashes, warm dry and intact. Neurologic: No obvious focal neurological deficits seen. Psychiatric: Alert and oriented x3 with a euthymic affect. Results & Data Results & Data Vital Signs (Past 12 Hours) Vital Signs Temp Pulse Pulse Pulse Resp BP Pulse Ox 09/14/22 07:00 36.3 C L 67 18 122/75 95 09/14/22 02:11 36.5 C 59 L 20 123/77 94 09/14/22 00:26 04/18/23 01:31 36.5 C 60 22 127/79 97 09/14/22 00:25 59 L 09/14/22 00:26 36.5 C 60 22 127/79 97 09/13/22 23:06 53 L 20 121/75 95 09/13/22 22:00 59 L 16 136/80 94 O2 Del Method O2 Flow Rate 09/14/22 07:00 Room Air, Nasal Cannula 2 09/14/22 02:11 Nasal Cannula 2 09/14/22 00:26 Nasal Cannula 2 09/14/22 01:31 Nasal Cannula 2 09/14/22 00:25 09/14/22 00:26 Nasal Cannula 2 09/13/22 23:06 Nasal Cannula 2 09/13/22 22:00 Nasal Cannula 2 PG Care Time/CCT Total # of Minutes Spent Total Time Spent with Patient: Total time spent is greater than 50% in coordination of care (as documented) at patient's floor/unit and/or counseling patient: Coding Level of Care Code 57616 IN/OBS CONSULT LVL 3,45M Diagnoses Secondary spontaneous pneumothorax J93.12 Recurrent spontaneous pneumothorax J93.83
--- NOTE | 2022-09-14 10:48 | Electrocardiogram Report ---
Test Reason : Blood Pressure : / mmHG Vent. Rate : 078 BPM Atrial Rate : 078 BPM P-R Int : 158 ms QRS Dur : 084 ms QT Int : 366 ms P-R-T Axes : 091 080 074 degrees QTc Int : 417 ms Normal sinus rhythm Anteroseptal infarct (cited on or before 13-SEP-2022) Abnormal ECG When compared with ECG of 07-JUN-2022 15:59, T wave amplitude has decreased in Lateral leads Confirmed by Mike Patten ([id number]) on 09/14/2022 10:48:08 AM Referred By: [facility] Confirmed By:Marcel Patten
--- NOTE | 2022-09-14 12:44 | Hospitalist Progress Note ---
Date of Service September 14, 2022 Assessment & Plan (1) Recurrent spontaneous pneumothorax: (2) Secondary spontaneous pneumothorax: Plan: Patient is a 51-year-old male with past medical history of HIV on Biktarvy, CKD presented to the hospital with severe chest pain and shortness of breath. Patient reported that the shortness of breath started after patient started to exercise. Similar admission in May this year; required chest tube placement. Chest x-ray on admission personally reviewed; found to have large pneumothorax on right side. Patient had pigtail catheter placed in the ED. Repeat chest x- ray shows right a small bore pigtail catheter in place with resolution of pneumothorax Chest CTA from May personally reviewed reviewed; patient has advanced emphysema with large apical blebs Discussed with pulmonology (Dr. Bourgeois); patient will need definitive management of recurrent spontaneous pneumothorax due to large blebs He recommended to transfer the patient to tertiary care center. Discussed with transfer center at [facility], Dr. Mejia(thoracic surgery); patient was accepted for transfer. Patient to remain in the hospital till bed is evaluated. Continue to monitor oxygen saturation (3) CKD (chronic kidney disease): Plan: BMP reviewed from today;Creatinine is 1.56; similar to baseline (4) HIV (human immunodeficiency virus infection): Plan: Continue on Biktarvy Plan DVT prophylaxis heparin Full code [facility] of recurrent spontaneous pneumothorax. Accepted by Dr. Mejia(thoracic surgery) Admission and Anticipated Discharge Date Admission Date: September 13, 2022 Subjective Patient seen and examined at bedside. He is comfortably lying on the bed; not in any distress. He is saturating well at 2 L of nasal cannula. Denies any chest pain or shortness of breath. Review of Systems Review of Systems: All systems reviewed & are unremarkable except as noted in Subjective Physical Exam Physical Exam: GENERAL: Alert and oriented x3. NAD, on 2 L nasal cannula HEENT: No pallor, no icterus. Pupils equal, round and reactive to light. Oral mucosa moist. NECK: No JVD, no neck masses. HEART: S1 and S2 heard. Regular rate and rhythm. No murmur, no gallop. RESPIRATORY SYSTEM: Normal AP diameter. No accessory muscle use. Bilateral clear breath sound. No added sound. ABDOMEN: Soft, bowel sounds present, nontender, no distention. CENTRAL NERVOUS SYSTEM: No facial droop. Speech is clear. Obeys simple commands. Moves extremities. EXTREMITIES: No edema, no erythema seen. Results & Data Results & Data Vital Signs (Past 12 Hours) Vital Signs Temp Pulse Pulse Pulse Resp BP Pulse Ox 09/14/22 11:00 36.4 C L 61 16 108/69 96 09/14/22 08:10 55 L 09/14/22 08:10 09/14/22 07:00 36.3 C L 67 18 122/75 95 09/14/22 02:11 36.5 C 59 L 20 123/77 94 09/14/22 01:31 36.5 C 60 22 127/79 97 O2 Del Method O2 Flow Rate 09/14/22 11:00 Nasal Cannula 2 09/14/22 08:10 09/14/22 08:10 Nasal Cannula 2 09/14/22 07:00 Room Air, Nasal Cannula 2 09/14/22 02:11 Nasal Cannula 2 09/14/22 01:31 Nasal Cannula 2 Laboratory Results Laboratory Results WBC 10.44 K/ul (4.8-10.8) 09/14/22 05:37 RBC 5.28 M/uL (4.70-6.10) 09/14/22 05:37 Hgb 16.4 g/dl (14.0-18.0) 09/14/22 05:37 Hct 47.6 % (42.0-52.0) 09/14/22 05:37 MCV 90.2 fL (80.0-100.0) 09/14/22 05:37 MCH 31.1 pg (25.0-34.0) 09/14/22 05:37 MCHC 34.5 g/dL (32.0-36.0) 09/14/22 05:37 RDW Std Deviation 43.7 fL (36.4-46.3) 09/14/22 05:37 RDW Coeff of Lindsey 13.2 % (11.5-14.5) 09/14/22 05:37 Plt Count 226 K/uL (130-400) 09/14/22 05:37 MPV 10.7 fL (9.4-12.4) 09/14/22 05:37 Immature Gran % (Auto) 0.4 % 09/14/22 05:37 Neut % (Auto) 56.1 % 09/14/22 05:37 Lymph % (Auto) 32.6 % 09/14/22 05:37 Wirt % (Auto) 8.0 % 09/14/22 05:37 Eos % (Auto) 2.5 % 09/14/22 05:37 Baso % (Auto) 0.4 % 09/14/22 05:37 Neut # (Auto) 5.86 K/uL (1.40-6.50) 09/14/22 05:37 Lymph # (Auto) 3.40 K/uL (1.2-3.4) 09/14/22 05:37 Wirt # (Auto) 0.84 K/uL (0.11-0.59) H 09/14/22 05:37 Eos # (Auto) 0.26 K/uL (0-0.50) 09/14/22 05:37 Baso # (Auto) 0.04 K/uL (0-0.2) 09/14/22 05:37 Immature Gran # (Auto) 0.04 K/uL (0.01-0.20) 09/14/22 05:37 PT 10.8 Seconds (9.0-12.0) 09/13/22 17:13 INR 1.0 (0.9-1.1) 09/13/22 17:13 APTT 25.4 Seconds (21.0-31.0) 09/13/22 17:13 PTT Ratio 0.9 09/13/22 17:13 VBG pH 7.41 (7.36-7.41) 09/13/22 17:12 VBG pCO2 49 mmHg (38-50) 09/13/22 17:12 VBG pO2 38 mmHg 09/13/22 17:12 VBG HCO3 31 mmol/L 09/13/22 17:12 VBG O2 Saturation < 60.0 % 09/13/22 17:12 VBG Base Excess 5.0 mEq/L 09/13/22 17:12 Sodium 138 mmol/L (136-145) 09/14/22 05:37 Potassium 4.3 mmol/L (3.5-5.1) 09/14/22 05:37 Chloride 106 mmol/L (98-107) 09/14/22 05:37 Carbon Dioxide 29 mmol/L (21-32) 09/14/22 05:37 Anion Gap 3 (3-11) 09/14/22 05:37 BUN 17 mg/dl (6-23) 09/14/22 05:37 Creatinine 1.56 mg/dl (0.6-1.4) H 09/14/22 05:37 Est Cr Clr Drug Dosing 73.0 ml/min 09/14/22 05:37 Est GFR ( Amer) 59.2 ml/min 09/14/22 05:37 Est GFR (Non-Af Amer) 51.0 ml/min 09/14/22 05:37 BUN/Creatinine Ratio 10.9 (10-20) 09/14/22 05:37 Glucose 89 mg/dl (70-99(Fasting)) 09/14/22 05:37 Calcium 8.8 mg/dl (8.6-10.3) 09/14/22 05:37 Magnesium 1.9 mg/dl (1.7-2.4) 09/14/22 05:37 Total Bilirubin 0.5 mg/dl (0.2-1.0) 09/13/22 17:14 AST 22 U/L (13-39) 09/13/22 17:14 ALT 27 U/L (7-52) 09/13/22 17:14 Alkaline Phosphatase 110 U/L (34-104) H 09/13/22 17:14 Troponin I High Sens 8.8 pg/ml (0-20) 09/13/22 17:14 Total Protein 8.3 gm/dl (6.0-8.3) 09/13/22 17:14 Albumin 4.7 gm/dl (3.4-5.0) 09/13/22 17:14 Globulin 3.6 gm/dl (2.5-4.0) 09/13/22 17:14 Albumin/Globulin Ratio 1.3 (0.9-2) 09/13/22 17:14 Nasal Screen MRSA (PCR) Negative (Negative) 09/14/22 Unknown SARS-CoV-2, RNA, NAAT NEGATIVE (NEGATIVE) 09/13/22 17:13 Impressions Chest X-Ray 09/14/22 08:00 XR chest 1V portable CLINICAL HISTORY: pneumothorax TECHNIQUE: Single frontal radiograph of the chest was obtained. Comparison: Comparison is made to chest radiograph 09/13/2022 FINDINGS: Small right pleural catheter. The cardiomediastinal silhouette is normal. The lungs are clear. No evidence of residual pneumothorax. There may be a trace right pleural effusion. IMPRESSION: No evidence of residual pneumothorax. Right chest tube is again seen. There may be trace right pleural effusion. ACT 112: Negative or not required by law. Electronically signed by: Luke Lloyd M.D. 09/14/2022 8:05 AM
--- NOTE | 2022-09-14 12:57 | XRay Report ---
XR chest 1V portable HISTORY: 51 years-old Male s/p waterseal follow-up study in a patient with right-sided chest tube COMPARISON: Chest radiograph of same day at 6:37 AM TECHNIQUE: AP view of the chest FINDINGS: Cardiac silhouette is unchanged. Right medial lung base opacity redemonstrated suggestive of partiall y collapsed along. Emphysema with chronic interstitial coarsening. A right-sided chest tube is noted with distal tip coiled at the lateral right midlung. A residual pneumothorax is suspected, however a discrete pleural line is not definitively seen. IMPRESSION: 1. Stable positioning of the right-sided chest tube. Suspected residual right-sided pneumothorax with out discrete pleural line identified. 2. Right lung volume loss again noted. ACT 112: Negative or not required by law. The above report was generated using voice recognition software. It may contain grammatical, syntax o r spelling errors. Electronically signed by: Brandon Kennedy M.D. 09/14/2022 12:55 PM
[2022-09-14 13:33] LABS: Appearance Urine Clear (Clear); Bilirubin Urine Negative (Negative); Blood Urine Negative (Negative); Color Urine Yellow; Glucose Urine UA Negative (Negative); Ketones Urine Negative (Negative); Leukocyte Esterase Urine Negative (Negative); Nitrite Urine Negative (Negative); Protein Urine Negative (Negative); Specific Gravity Urine 1.024 (1.000-1.030); Urobilinogen Urine Negative (Negative); pH Urine 6.5 (4.5-7.5)
--- NOTE | 2022-09-14 16:32 | Discharge Summary ---
Date of Service September 14, 2022 Admission HPI Per Admitting Provider This is a 51-year-old male, coming from [facility] with past medical history significant for HIV, on Biktarvy, seems for the last 9-10 years, history of depression and pericardial effusion, status post pericardiocentesis and pericardial drain thereafter as per previous records. The patient was here in May with spontaneous pneumothorax after working in gym. At that time, was status post pigtail catheter. Tension pneumothorax was thought to be secondary to rupture of bleb. Pigtail catheter was discontinued 06/11/2022 prior to discharge. Now comes back in again with spontaneous pneumothorax. The patient says he was doing some exercise a couple of days ago and felt short of breath. Went to the medical x-ray done and was sent in here . Cxr showing large right pneumothorax. ER physician d/w ICU and patient is s/p pigtail catheter.The repeat x-ray looks pneumothorax is improved and the patient is saturating okay on room air, seems comfortable except for some discomfort at the pigtail catheter site.Plan to admit to tele floor and evaluated by pulmonary in the a.m. for any requirement for VATS procedure . Denies any chest pain. No shortness of breath, no cough, no fevers, no headache, no blurred visions, no earache, no runny nose, no sore throat. Appetite is okay. No nausea, no abdominal pain. Normal bowel and bladder movements. Say his HIV is under control. Takes his medications regularly. Admission Exam Per Admitting Provider GENERAL: The patient is of moderate build, not in acute distress. VITAL SIGNS: Temperature 36.6, pulse 53, respiratory rate 20, blood pressure 121/75, oxygen 95% on 2 liters. HEENT: Pupils equal, round and reactive to light. Oral mucosa moist. NECK: No JVD, no neck masses. CARDIOVASCULAR: S1 and S2 heard. Regular rate and rhythm. No murmur, no gallop. RESPIRATORY SYSTEM: Normal AP diameter. No accessory muscle use. No wheezing. No crackle. Status post pigtail catheter on the right side of chest. ABDOMEN: Soft, bowel sounds present, nontender, no distention. CENTRAL NERVOUS SYSTEM: Cranial nerves II-XII grossly intact, nonfocal. EXTREMITIES: No edema, no erythem Principal Diagnosis (1) Recurrent spontaneous pneumothorax: (2) Secondary spontaneous pneumothorax Discharge Exam GENERAL: Alert and oriented x3. NAD, on 2 L nasal cannula HEENT: No pallor, no icterus. Pupils equal, round and reactive to light. Oral mucosa moist. NECK: No JVD, no neck masses. HEART: S1 and S2 heard. Regular rate and rhythm. No murmur, no gallop. RESPIRATORY SYSTEM: Normal AP diameter. No accessory muscle use. Bilateral clear breath sound. No added sound. ABDOMEN: Soft, bowel sounds present, nontender, no distention. CENTRAL NERVOUS SYSTEM: No facial droop. Speech is clear. Obeys simple commands. Moves extremities. EXTREMITIES: No edema, no erythema seen. Discharge Data Allergies Allergy/AdvReac Type Severity Reaction Status Date / Time No Known Drug Allergies Allergy Unknown Verified 09/13/22 19:33 Consultations 09/13/22 21:12 ED Decision to Admit Stat 09/14/22 08:00 Consult Pulmonology Routine Hospital Course (1) Recurrent spontaneous pneumothorax: (2) Secondary spontaneous pneumothorax: (3) CKD (chronic kidney disease): (4) HIV (human immunodeficiency virus infection): Plan Patient is a 51-year-old male with past medical history of HIV on Biktarvy, CKD presented to the hospital with severe chest pain and shortness of breath. Patient reported that the shortness of breath started after patient started to exercise. Similar admission in May this year; required chest tube placement. Chest x-ray on admission ; found to have large pneumothorax on right side. Patient had pigtail catheter placed in the ED. Repeat chest x-ray shows right a small bore pigtail catheter in place with resolution of pneumothorax Chest CTA from May personally reviewed; patient has advanced emphysema with large apical blebs Discussed with pulmonology (Dr. Bourgeois); patient will need definitive management of recurrent spontaneous pneumothorax due to large blebs He recommended to transfer the patient to tertiary care center. Discussed with transfer center at [facility], Dr. Mejia(thoracic surgery); patient was accepted for transfer. Total Time Total Time Spent Total Time Spent (In Minutes): 60 Total Time Includes: Examination of the Patient, Discharge Planning, Medication Reconciliation, Communication With Other Providers and Other Discharge Plan Discharge Items Patient Disposition: Transfer Acute Care Hospital Reason For Visit: SOB, PNEUMOTHORAX Discharge Diagnosis: (1) Recurrent spontaneous pneumothorax: (2) Secondary spontaneous pneumothorax: Activity: Resume your previous activity Non-emergency contact: Primary Care Provider Call non-emergency contact if: you have any medication questions and your symptoms worsen Follow-up/Referrals: Barb MEZA [Primary Care Provider] - Diet: Regular Addtl Attending Provider Instructions: Patient is a 51-year-old male with past medical history of HIV on Biktarvy, CKD presented to the hospital with severe chest pain and shortness of breath. Patient reported that the shortness of breath started after patient started to exercise. Similar admission in May this year; required chest tube placement for pneumothorax. Chest x-ray on admission; found to have large pneumothorax on right side. Patient had pigtail catheter placed in the ED. Repeat chest x-ray shows right a small bore pigtail catheter in place with resolution of pneumothorax Chest CTA from [facility]; patient has advanced emphysema with large apical blebs Discussed with pulmonology (Dr. Bourgeois); patient will need definitive management of recurrent spontaneous pneumothorax due to large blebs He recommended to transfer the patient to tertiary care center. Discussed with transfer center at [facility], Dr. Mejia(thoracic surgery); patient was accepted for transfer. Pending Studies at Discharge: No Stand-Alone Forms: My [facility] Skilled Items Patient informed of condition?: Yes DNR: No Discharge Level of Care: Other Communicable Disease: No Discharge Prognosis: Stable Lines: Peripheral IV Urinary Catheter: No Medications and DC Order Prescriptions: Continued doxepin 100 mg Capsule 100 mg PO HS albuterol sulfate 90 mcg/actuation Hfa Aerosol Inhaler 2 puff INHALATION QID PRN (Reason: Shortness Of Breath) Geritol Complete 16 mg iron- 0.38 mg Tablet 1 tab PO DAILY Biktarvy 30-120-15 mg Tablet 1 tab PO DAILY Rx Instructions: STRENGTH NOT LISTED ON MED LIST Discharge Orders: Discharge Order (Routine); Ordered 09/14/22 Ordered By: Chai Luz Admission Data Admit Date/Time: 09/13/22 23:10 Attending Provider: Chai Luz Admit Provider: Guy Hoyos Primary Care Provider: Barb MEZA Other Providers: Guy Hoyos ; Ruben Bourgeois
[2022-09-14] MEDS ORDERED: HYDROmorphone INJ 0.5 MG/0.5 ML SYR IV STA (20:21)
== END 2022-09-14 21:27 | disposition short-term general hospital (02) | DRG 200 ==
LOC: ED 16:56 → 2S 23:10